=== PATIENT | female | born 1940 | race Caucasian/White ===

== ENCOUNTER 2024-06-10 17:52 | Inpatient (IN) | payer MEDICARE, SELFPAY ==
--- NOTE | ~2024-06-10 | XR_ITS ---
EXAMINATION: XR CHEST 1 VIEW HISTORY: SOB COMPARISON: There are no prior studies for comparison. FINDINGS: A single AP portable view of the chest performed at 2:36 PM is submitted. There is linear subsegmental atelectasis versus scarring at the left lung base and in the right midlung zone. The lungs are otherwise clear. There is no pleural effusion, pneumothorax, or pulmonary vascular congestion. The heart is normal in size. The aorta is calcified and tortuous. There is degenerative disc disease of the spine. XR/XR chest 1V IMPRESSION: Subsegmental atelectasis versus scarring at the left lung base and in the right midlung zone. Electronically signed by: Tom Bryant MD 06/26/2024 03:02 PM EDT
--- OUTSIDE RECORDS SUMMARY | 2024-06-10 18:27 | XMS_ITS | Clinical Summary ---
Author Organization [facility] ([facility] [id number]) Address [address] [facility] [address] [place] [phone] Phone Care Team Providers Care Medication Nurse Name Role Phone AL DUNLAP, BHUPINDER Unavailable Unavailable SHARA [id number], DENNIS Unavailable Unavailabl e Payers Payer Name Policy Type Policy Number Effective Date Expira tion Date NGS - PDGM [id number] Problems Condition Name Condition Details Condition Category Status Onset Date Resolution Date Last Treatment Date Treating Clinician Comments UNSP DEMENTIA, UNSP SEVERITY, WITHOUT BEH/PSYCH/MO OD/ANX Active 05-14 00:00: 00 ESSENTIAL (PRIMARY) HYPERTENSION Active 02-25 00:00: 00 SYSTEMIC LUPUS ERYTHEMATOSU S, UNSPECIFIED Active 02-25 00:00: 00 GASTRO-ESOPH AGEAL REFLUX DISEASE WITHOUT ESOPHAGITIS Active 02-25 00:00: 00 HYPOTHYROIDI SM, UNSPECIFIED Active 02-25 00:00: 00 PURE HYPERCHOLEST EROLEMIA, UNSPECIFIED Active 02-25 00:00: 00 METABOLIC ENCEPHALOPAT HY Active 02-25 00:00: 00 AORTIC ANEURYSM OF UNSPECIFIED SITE, WITHOUT RUPTURE Active 02-25 00:00: 00 UNSPECIFIED GLAUCOMA Active 02-25 00:00: 00 MORBID (SEVERE) OBESITY DUE TO EXCESS CALORIES Active 02-25 00:00: 00 BODY MASS INDEX [BMI] 32.0-32.9, ADULT Active 02-25 00:00: 00 SHELTER (CURRENT) USE OF SYSTEMIC STEROIDS Active 02-25 00:00: 00 HISTORY OF FALLING Active 02-25 00:00: 00 Allergies, Adverse Reactions, Alerts Allergy Name Allergy Type Status Severity Reaction(s) Onset Date Inactive Date Treating Clinician Comments AMOXCILLIN Propensity to adverse reactions Active 05-17 08:50: 29 CLINDAMYCIN Propensity to adverse reactions Active 05-17 08:50: 42 NABUMATONE Propensity to adverse reactions Inactive 05-17 08:50: 51 4 09:32:13 PENICILLIN Propensity to adverse reactions Active 05-17 08:51: 24 ERYTHOMYCIN Propensity to adverse reactions Active 05-17 08:51: 33 SULFA (SULFONAMID ES) Propensity to adverse reactions Active 05-17 08:51: 49 NABUMETONE Propensity to adverse reactions Active 05-29 09:32: 13 Medications Ordered Medication Name Filled Medication Name Start Date Stop Date Current Medication? Ordering Clinician Indication Dosage Frequency Signature (SIG) Comments Components estradiol 1 mg tablet 05-16 00:00: 00 Yes [id number] 0.5 tablet DAILY 0.5 tablet DAILY (route: oral) Med Classific ation: Endocrine hydroxychlo roquine 200 mg tablet 05-16 00:00: 00 Yes [id number] 1 tablet 2 TIMES DAILY 1 tablet 2 TIMES DAILY (route: oral) Med Classific ation: Anti-Infe ctive Agents levothyroxi ne 125 mcg tablet 05-16 00:00: 00 Yes [id number] 1 tablet EVERY AM 1 tablet EVERY AM (route: oral) Med Classific ation: Endocrine losartan 100 mg tablet 05-16 00:00: 00 Yes [id number] 1 tablet DAILY 1 tablet DAILY (route: oral) Med Classific ation: Cardiovas cular Therapy Agents metoprolol tartrate 25 mg tablet 05-16 00:00: 00 Yes [id number] 0.5 tablet 2 TIMES DAILY 0.5 tablet 2 TIMES DAILY (route: oral) Med Classific ation: Cardiovas cular Therapy Agents nystatin 100,000 unit/gram topical powder 05-16 00:00: 00 Yes [id number] Per instruc tions 2 TIMES DAILY Per instructio ns 2 TIMES DAILY (route: topical) Med Classific ation: Dermatolo gical omeprazole 10 mg capsule,del ayed release 05-16 00:00: 00 Yes [id number] 1 capsule EVERY AM 1 capsule EVERY AM (route: oral) Med Classific ation: Gastroint estinal Therapy Agents prednisone 5 mg tablet 05-16 00:00: 00 Yes [id number] 3 tablet DAILY 3 tablet DAILY (route: oral) Med Classific ation: Endocrine Vital Signs Vital Name Observation Time Observation Value Commen ts Temperature 2024-06-01 14:16:00.000 98 [degF] Temperature 2024-05-27 14:12:00.000 97.2 [degF] Temperature 2024-05-25 19:32:00.000 96.9 [degF] Temperature 2024-05-21 11:01:00.000 97.2 [degF] Temperature 2024-05-19 10:48:00.000 97.6 [degF] Temperature 2024-05-16 12:22:00.000 97.3 [degF] BMI (%) 2024-05-16 12:22:00.000 32 kg/m2 Height 2024-05-16 12:22:00.000 64 [in_us] Pulse 2024-06-01 14:16:00.000 70 /min Pulse 2024-05-27 16:25:00.000 78 /min Pulse 2024-05-27 14:12:00.000 81 /min Pulse 2024-05-26 13:09:00.000 76 /min Pulse 2024-05-25 19:32:00.000 68 /min Pulse 2024-05-22 18:55:00.000 72 /min Pulse 2024-05-21 11:01:00.000 66 /min Pulse 2024-05-19 10:48:00.000 58 /min Pulse 2024-05-16 13:00:00.000 69 /min Pulse 2024-05-16 12:22:00.000 60 /min O2 Saturation (%) 2024-06-01 14:16:00.000 97 % O2 Saturation (%) 2024-05-27 16:26:00.000 97 % O2 Saturation (%) 2024-05-27 14:12:00.000 98 % O2 Saturation (%) 2024-05-26 13:10:00.000 96 % O2 Saturation (%) 2024-05-25 19:32:00.000 98 % O2 Saturation (%) 2024-05-21 11:01:00.000 98 % O2 Saturation (%) 2024-05-19 10:48:00.000 98 % O2 Saturation (%) 2024-05-16 13:00:00.000 98 % O2 Saturation (%) 2024-05-16 12:22:00.000 98 % Respirations 2024-06-01 14:16:00.000 18 /min Respirations 2024-05-27 16:26:00.000 22 /min Respirations 2024-05-27 14:12:00.000 20 /min Respirations 2024-05-26 13:09:00.000 22 /min Respirations 2024-05-25 19:32:00.000 18 /min Respirations 2024-05-21 11:01:00.000 18 /min Respirations 2024-05-19 10:48:00.000 16 /min Respirations 2024-05-16 13:00:00.000 24 /min Respirations 2024-05-16 12:22:00.000 18 /min Weight (lbs) 2024-05-16 12:22:00.000 191 [lb_av] Systolic Blood Pressure 2024-06-01 14:16:00.000 130 mm [Hg] Systolic Blood Pressure 2024-05-27 16:25:00.000 120 mm [Hg] Systolic Blood Pressure 2024-05-27 14:12:00.000 120 mm [Hg] Systolic Blood Pressure 2024-05-26 13:10:00.000 138 mm [Hg] Systolic Blood Pressure 2024-05-25 19:32:00.000 130 mm [Hg] Systolic Blood Pressure 2024-05-21 11:01:00.000 128 mm [Hg] Systolic Blood Pressure 2024-05-19 10:48:00.000 132 mm [Hg] Systolic Blood Pressure 2024-05-16 13:00:00.000 149 mm [Hg] Systolic Blood Pressure 2024-05-16 12:22:00.000 135 mm [Hg] Diastolic Blood Pressure 2024-06-01 14:16:00.000 82 mm [Hg] Diastolic Blood Pressure 2024-05-27 16:25:00.000 68 mm [Hg] Diastolic Blood Pressure 2024-05-27 14:12:00.000 68 mm [Hg] Diastolic Blood Pressure 2024-05-26 13:10:00.000 72 mm [Hg] Diastolic Blood Pressure 2024-05-25 19:32:00.000 72 mm [Hg] Diastolic Blood Pressure 2024-05-21 11:01:00.000 76 mm [Hg] Diastolic Blood Pressure 2024-05-19 10:48:00.000 70 mm [Hg] Diastolic Blood Pressure 2024-05-16 13:00:00.000 90 mm [Hg] Diastolic Blood Pressure 2024-05-16 12:22:00.000 80 mm [Hg] Plan of Care Planned Activity Planned Date Details Comments Future Scheduled Test PHYSICAL T HERAPIST WILL ASSESS AND INSTRUCT ON ANY CHANGES IN CO-EXISTING AND/OR RECURRING CONDITIONS SUCH DEMENTIA, TACHYCARDIA FACTORS THAT IMPACT ACTIVITY AND PARTICIPATION, DEVELOP PHYSICAL THERAPY PLAN OF CARE IN CONSULTATION WITH THE PHYSICIAN THAT INCLUDES INFECTION PREVENTION/CONTROL, DEPRESSION, HEALTH PROMOTION, HOME SAFETY, NUTRITIONAL NEEDS, IDENTIFICATION OF NEW OR CHANGED MEDICATIONS AND HOME INSTRUCTIONS TO FACILITATE TIMELY DISCHARGE. MAY RESUME CARE IF PATIENT IS TRANSFERRED TO AN INPATIENT FACILITY AND SUBSEQUENTLY DISCHARGED DURING THE EPISODE OF CARE. MAY D/C FROM AGENCY/SKILLED DISCIPLINE FOR GOALS MET, NO FURTHER SKILLS, NO LONGER HOMEBOUND, PER CT/PCG/MD REQUEST, UNSAFE HOME ENVIRONMENT, MOVED OUT OF SERVICE AREA OR DISCHARGED TO HOSPICE SERVICE. [code = PHYSICAL THERAPIST WILL ASSESS AND INSTRUCT ON ANY CHANGES IN CO-EXISTING AND/OR RECURRING CONDITIONS SUCH DEMENTIA, TACHYCARDIA FACTORS THAT IMPACT ACTIVITY AND PARTICIPATION, DEVELOP PHYSICAL THERAPY PLAN OF CARE IN CONSULTATION WITH THE PHYSICIAN THAT INCLUDES INFECTION PREVENTION/CONTROL, DEPRESSION, HEALTH PROMOTION, HOME SAFETY, NUTRITIONAL NEEDS, IDENTIFICATION OF NEW OR CHANGED MEDICATIONS AND HOME INSTRUCTIONS TO FACILITATE TIMELY DISCHARGE. MAY RESUME CARE IF PATIENT IS TRANSFERRED TO AN INPATIENT FACILITY AND SUBSEQUENTLY DISCHARGED DURING THE EPISODE OF CARE. MAY D/C FROM AGENCY/SKILLED DISCIPLINE FOR GOALS MET, NO FURTHER SKILLS, NO LONGER HOMEBOUND, PER CT/PCG/MD REQUEST, UNSAFE HOME ENVIRONMENT, MOVED OUT OF SERVICE AREA OR DISCHARGED TO HOSPICE SERVICE.] Future Scheduled Test I CERTIFY THAT THIS PATIENT IS CONFINED TO HIS/HER HOME AND NEEDS INTERMITTENT USP CARE, PHYSICAL THERAPY AND/OR SPEECH THERAPY OR CONTINUES TO NEED OCCUPATIONAL THERAPY. THE PATIENT IS UNDER MY CARE AND I HAVE AUTHORIZED SERVICES ON THIS PLAN OF CARE AND WILL PERIODICALLY REVIEW THE PLAN. THE PATIENT HAD A [id number] ENCOUNTER RELATED TO THE PRIMARY REASON FOR HOME HEALTH CARE WITH AN ALLOWED PROVIDER TYPE ON 04/30/24. [code = I CERTIFY THAT THIS PATIENT IS CONFINED TO HIS/HER HOME AND NEEDS INTERMITTENT USP CARE, PHYSICAL THERAPY AND/OR SPEECH THERAPY OR CONTINUES TO NEED OCCUPATIONAL THERAPY. THE PATIENT IS UNDER MY CARE AND I HAVE AUTHORIZED SERVICES ON THIS PLAN OF CARE AND WILL PERIODICALLY REVIEW THE PLAN. THE PATIENT HAD A [id number] ENCOUNTER RELATED TO THE PRIMARY REASON FOR HOME HEALTH CARE WITH AN ALLOWED PROVIDER TYPE ON 04/30/24.] Future Scheduled Test PHYSICAL T HERAPIST WILL ASSESS AND INSTRUCT ON PAIN MANAGEMENT EACH VISIT AND PROVIDE INSTRUCTION REGARDING PAIN CONTROL INCLUDING PHARMACOLOGIC AND NON-PHARMACOLOGIC METHODS [code = PHYSICAL THERAPIST WILL ASSESS AND INSTRUCT ON PAIN MANAGEMENT EACH VISIT AND PROVIDE INSTRUCTION REGARDING PAIN CONTROL INCLUDING PHARMACOLOGIC AND NON-PHARMACOLOGIC METHODS ] Future Scheduled Test PHYSICAL T HERAPIST WILL ASSESS AND INSTRUCT CLIENT/CAREGIVER IN GENERAL MODIFIABLE RISKS AND SAFETY ROUTINES FOR FALLS PREVENTION. [code = PHYSICAL THERAPIST WILL ASSESS AND INSTRUCT CLIENT/CAREGIVER IN GENERAL MODIFIABLE RISKS AND SAFETY ROUTINES FOR FALLS PREVENTION. ] Future Scheduled Test PHYSICAL T HERAPIST TO ASSESS AND INSTRUCT ON INTERVENTIONS FOR IMPROVED FUNCTIONAL MOBILITY WITH TRANSFERS, BED MOBILITY, AMBULATION THERAPEUTIC/BALANCE EXERCISES AND HOME PROGRAM NEEDED. [code = PHYSICAL THERAPIST TO ASSESS AND INSTRUCT ON INTERVENTIONS FOR IMPROVED FUNCTIONAL MOBILITY WITH TRANSFERS, BED MOBILITY, AMBULATION THERAPEUTIC/BALANCE EXERCISES AND HOME PROGRAM NEEDED.] Future Scheduled Test PHYSICAL T HERAPIST WILL ASSESS AND INSTRUCT CLIENT/CAREGIVER ON MANAGEMENT OF SKIN INTEGRITY AND PREVENTION OF PRESSURE ULCERS WITH/WITHOUT MOIST SKIN BARRIER, POSITIONING, INSPECTION, AND OFFLOADING TECHNIQUES. THERAPIST WILL ASSESS THE NEED FOR SUPPORT SURFACES (CUSHION, MATTRESS, ETC). [code = PHYSICAL THERAPIST WILL ASSESS AND INSTRUCT CLIENT/CAREGIVER ON MANAGEMENT OF SKIN INTEGRITY AND PREVENTION OF PRESSURE ULCERS WITH/WITHOUT MOIST SKIN BARRIER, POSITIONING, INSPECTION, AND OFFLOADING TECHNIQUES. THERAPIST WILL ASSESS THE NEED FOR SUPPORT SURFACES (CUSHION, MATTRESS, ETC).] Encounters Start Date/Time End Date/Time Encounter Type Admission Type Attending [facility] Care Department Encounter ID [id number] 00:00:00 2024-07-14 00:00:00 Unknown NEW ADMISSION DENNIS [facility]MEDO [facility] [id number]
[2024-06-10 18:52] VITALS: BMI 29.7
[2024-06-10 18:54] VITALS: BP 153/83; PULSE 60; RESP 18; TEMP 36.1; O2SAT 97
--- NOTE | 2024-06-10 19:09 | PC.NURSE ---
Emily arrived at 1820. 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 She was found to have increased troponin and was admitted for possible pneumonia. Once cleared medically she made several suicidal statements and became an IPLOC search. Pleasant when arrived changed over and skin only remarkable for bruising. No redness or open areas. Appetite is good and she is currently in the dining room eating a snack. Ambulating with a slow and steady gait. Admission will be passed to oncoming shift.
[2024-06-10] MEDS: QUEtiapine Fumarate 25 MG TABLET PO (21:39)
[2024-06-10] MEDS: predniSONE 5 MG TABLET 10 MG PO (22:16)
[2024-06-11] MEDS: Levothyroxine Sodium 125 MCG TABLET PO (05:57)
[2024-06-11 08:24] LABS: Estimated Average Glucose 97 mg/dL; Hemoglobin A1C 121.9742 umol/L; Total Hemoglobin (HGBA1C) 3945.9163 umol/L
[2024-06-11 08:35] LABS: Cholesterol 176 mg/dL (<200); HDL Cholesterol 64 mg/dL (>40); LDL Cholesterol Calculated 98 mg/dL (<100); Triglycerides 70 mg/dL (<150)
[2024-06-11 08:49] LABS: TSH reflex Free T4 1.41 uIU/mL (0.32-4.0)
[2024-06-11 09:00] VITALS: BP 127/67; PULSE 78; RESP 18; TEMP 36.7; O2SAT 96
[2024-06-11] MEDS: Acetaminophen 325 MG TABLET 650 MG PO (09:02)
[2024-06-11 09:03] LABS: Alanine Aminotransferase 26 U/L (0-31); Albumin Level 3.9 g/dL (3.5-5.0); Alkaline Phosphatase 76 U/L (39-117); Anion Gap 14 (12-20); Aspartate Amino Transferase 24 U/L (5-31); Bilirubin Total 0.4 mg/dL (0.0-1.0); Blood Urea Nitrogen 24 mg/dL (9-16); Calcium 9.6 mg/dL (8.4-10.2); Carbon Dioxide 26 mmol/L (22-29); Chloride 106 mmol/L (96-108); Creatinine Clr Calc Pharmacy 48.1; Estimated Glomerular Filt Rate 58; Glucose Random 98 mg/dL (60-115); Potassium 4.9 mmol/L (3.3-5.1); Sodium 141 mmol/L (135-145)
[2024-06-11] MEDS: Losartan Potassium 50 MG TABLET 100 MG PO (09:04)
[2024-06-11] MEDS: predniSONE 5 MG TABLET PO (09:05)
[2024-06-11] MEDS: Omeprazole/Na Bicarb Oral Susp 20 MG/10 ML UD Cup 10 MG PO (09:06)
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
--- NOTE | 2024-06-11 09:28 | P.HPPS_ITS ---
[facility] Date of Service: 06/11/24 Chief Complaint: Psychosis Sources of Information: patient interviewed, chart reviewed and crisis/core team assessment reviewed Additional Sources of Information: daughter, Lupe who is POA. [phone] [facility] Subjective Notes: Yousif Warning and Section 12B Healthcare Proxy: Yes Narrative: Mrs. Rosa is an 84 year-old woman with hx of dementia who recently transition to [facility] in 03/2024 due to concerns about her ability to care for herself due to dementia. She was sent via EMS from [facility] to [facility] due to combative behaviors, dizziness, refusal of care and HI towards daughter. In the ED, pertinent labs include CMP with no electrolyte abnormalities, BUN 17, Cr 1.03, creatinine clearance 54. LFTs wnl. UA not suggestive of UTI. She did have elevated TSH initially 27.994 on 06/01/2024, but went down to 12 on (06/06/2024). Troponins were also elevated initially 165 on 06/02/2024, then down to 29 on 06/06. She was seen by cardiology ruling out ischemia but considered elevation was due to increase demand. Head CT showed atrophy and microvascular changes but no acute finding. On the unit, pt presents as irritable. She reports her daughter has been making decisions on her behalf that she does not agree with including moving her out of her home in [facility] to a memory unit. She does not agree with diagnosis or dementia nor with idea that she was not able to care for herself. She denies SI or HI. She reports HI statements where in the context of frustration as again she feels her daughter is crossing her the line by taking over her medical care and financial decisions. She reports she has the right to refuse care and does admit that she was not taking medications as prescribed at times. She was noted to be easily irritable when talking about her daughter and not being able to return to her own home and live she had in [place]. Past Psychiatric History: Inpt: none prior OP: none Past medication trials: olanzapine, seroquel Hx of suicide attempts: none Medical Evaluation Reviewed: Yes [facility] Medical History (Updated 06/12/24 @ 08:19 by Dulce Lewis NP) GERD (gastroesophageal reflux disease) Dementia Hypothyroidism HTN (hypertension) Lupus (systemic lupus erythematosus) Family History: none Social History: Pt since 1982. She had 3 children. youngest daughter in MVA at the age of 21. Her son in 2017. She has only one living daughter. 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 Substance History: none Trauma History: multiple losses Diagnostics Vital Signs (24Hr): Vital Signs - 24 hr 06/10/24 18:54 06/11/24 09:00 Temperature 96.9 F 98.1 F Pulse Rate 60 78 Respiratory Rate 18 18 Blood Pressure 153/83 H 127/67 Pulse Oximetry 97 96 Oxygen Delivery Method Room Air Room Air BMI result Body Mass Index 29.7 Labs 06/11/24 07:26 Labs: Laboratory Results - last 48 hr 06/11/24 07:26 Sodium 141 Potassium 4.9 Chloride 106 Carbon Dioxide 26 Anion Gap 14 BUN 24 H Creatinine 0.93 Estim Creat Clear Calc 48.1 Estimated GFR 58 Random Glucose 98 Estimat Average Glucose 97 Hemoglobin A1c % 5.0 Calcium 9.6 Total Bilirubin 0.4 AST 24 ALT 26 Alkaline Phosphatase 76 Total Protein 7.0 Albumin 3.9 Triglycerides 70 Cholesterol 176 LDL Cholesterol, Calc 98 HDL Cholesterol 64 TSH 1.41 Meds/Allergies Meds Home Medications ?Medication ?Instructions ?Recorded ?Confirmed ?Type estradiol 1 mg tablet 1 mg PO DAILY 06/10/24 06/10/24 History hydroxychloroquine 200 mg tablet 200 mg PO BID 06/10/24 06/10/24 History levothyroxine 125 mcg tablet 125 mcg PO DAILY 06/10/24 06/10/24 History losartan 100 mg tablet 100 mg PO DAILY 06/10/24 06/10/24 History metoprolol tartrate 25 mg tablet 25 mg PO DAILY 06/10/24 06/10/24 History omeprazole 10 mg capsule,delayed 10 mg PO DAILY 06/10/24 06/10/24 History release prednisone 10 mg tablet 10 mg PO BEDTIME 06/10/24 06/10/24 History prednisone 5 mg tablet 5 mg PO QAM 06/10/24 06/10/24 History quetiapine 25 mg tablet 25 mg PO BEDTIME 06/10/24 06/10/24 History Allergies Allergies Allergy/AdvReac Type Severity Reaction Status Date / Time amoxicillin AdvReac Rash Verified 06/10/24 19:16 clindamycin AdvReac Rash Verified 06/10/24 19:14 erythromycin base AdvReac Rash Verified 06/10/24 19:15 nabumetone AdvReac Rash Verified 06/10/24 19:17 Penicillins AdvReac Rash Verified 06/10/24 19:16 Sulfa (Sulfonamide AdvReac Rash Verified 06/10/24 19:18 Antibiotics) [Sulfonamides] Mental Status Exam Mental Status Exam Narrative: Appearance: wearing hospital gown, fair hygiene, in NAD Behavior: irritable or guarded Psychomotor: mild intermittent agitation Speech: clear, normal rate/rhythm, spontaneous, low volume voice hx of vocal cord injury TP: linear TC: upset with daugther, hoping she can be independent again Mood: upset Affect: irritable SI: denies HI: denies VH/AH: none Delusions: none Insight/judgment: poor x 2. memory/cog: alert, oriented x 3. some confusion about why she is here. MOCA completed on 06/12/2024, impairments in executive function/visuospatial (2/5), naming 2/3, language fluency (0/1), intact orientation. ACL 4.6 Assessment & Plan Assessment & Plan (1) Major neurocognitive disorder: Status: Acute Code(s): F03.90 - Unspecified dementia, unspecified severity, without behavioral disturbance, psychotic disturbance, mood disturbance, and anxiety Plan Mrs. Rosa is a 84 year-old woman with hx of dementia who recently moved to [facility] in 03/2024. Pt was sent via EMS from the [facility] to [facility] due to combative behaviors, refusing care and HI towards daughter. Medical work remarkable for elevated TSH initially 27 to 12. Elevated troponin but seen by cardiology who felt not ischemia, but increased demand. On the unit, pt presents as irritable and upset with daughter, mostly because of placement to [facility] and not being at home. No overt psychosis or delusions noted. No SI/HI. She declines any medications for mood. Other than irritability, no combative behaviors. MOCA and ACL 4.6 show moderate cognitive decline. PLAN 1. Admit to S1, Sect 12b, 15 minutes checks 2. obtain collateral information 3. aftercare planning. Patient educated on: diagnosis and medication risk/benefits Guardian/Caregiver educated on: diagnosis and medication risk/benefits Informed Consent: understands Reason for continued inpatient stay Substantial Risk for: inability to function Statement Statement: I have reviewed the history and physical and performed a pertinent examination on my patient. No changes have occurred unless specified. If the History and Physical was not performed prior to admission, the Hospitalist's service will be consulted for completing the admission physical. Time Spent With Patient Time: Total time managing care of this patient today ____ minutes.
[2024-06-11] MEDS: Hydroxychloroquine Sulfate 200 MG TABLET PO ×2 (11:22→22:04)
[2024-06-11] MEDS: estradioL 0.5 MG TABLET 1 MG PO (11:22)
[2024-06-11 20:00] VITALS: BP 122/90; PULSE 79; RESP 18; TEMP 36.1; O2SAT 95
[2024-06-11] MEDS: predniSONE 5 MG TABLET 10 MG PO (22:05)
[2024-06-11] MEDS: QUEtiapine Fumarate 25 MG TABLET PO (22:08)
[2024-06-12] MEDS: Levothyroxine Sodium 125 MCG TABLET PO (06:05)
[2024-06-12 08:37] VITALS: BP 142/72; PULSE 62; RESP 20; TEMP 36.8; O2SAT 96
[2024-06-12] MEDS: Losartan Potassium 50 MG TABLET 100 MG PO (08:41)
[2024-06-12] MEDS: predniSONE 5 MG TABLET PO (08:41)
[2024-06-12] MEDS: Hydroxychloroquine Sulfate 200 MG TABLET PO ×2 (08:41→20:37)
[2024-06-12] MEDS: Omeprazole/Na Bicarb Oral Susp 20 MG/10 ML UD Cup 10 MG PO (08:45)
--- NOTE | 2024-06-12 17:21 | P.PNPSI_ITS ---
Subjective Subjective Date of Service: 06/12/24 Reason For Visit: Psychosis Subjective Notes: Section 12B Interim History: Pt slept through the night. She is very upset with daughter for having her move to [facility]. She is easily irritable and at times will apologize for being reactive towards staff and provider on the unit, recognizing this was not hospital doing. She does not present with any signs of psychosis or delusions. No SI/HI. Review of Systems Review of Systems No SOB, no chest pain. No constipation She reports back pain Mental Status Exam Mental Status Exam Narrative: Appearance: wearing hospital gown, fair hygiene, in NAD Behavior: irritable or guarded Psychomotor: mild intermittent agitation Speech: clear, normal rate/rhythm, spontaneous, low volume voice hx of vocal cord injury TP: linear TC: upset with daugther, hoping she can be independent again Mood: upset Affect: irritable SI: denies HI: denies VH/AH: none Delusions: none Insight/judgment: poor x 2. memory/cog: alert, oriented x 3. some confusion about why she is here. MOCA completed on 06/12/2024, impairments in executive function/visuospatial (2/5), naming 2/3, language fluency (0/1), intact orientation. ACL 4.6 Diagnostics Vital Signs (24Hr): Vital Signs - 24 hr 06/11/24 20:00 06/12/24 08:37 Temperature 97 F 98.3 F Pulse Rate 79 62 Respiratory Rate 18 20 Blood Pressure 122/90 H 142/72 H Pulse Oximetry 95 96 Oxygen Delivery Method Room Air Room Air BMI result Body Mass Index 29.7 Labs 06/11/24 07:26 Labs: Laboratory Results - last 48 hr 06/11/24 07:26 Sodium 141 Potassium 4.9 Chloride 106 Carbon Dioxide 26 Anion Gap 14 BUN 24 H Creatinine 0.93 Estim Creat Clear Calc 48.1 Estimated GFR 58 Random Glucose 98 Estimat Average Glucose 97 Hemoglobin A1c % 5.0 Calcium 9.6 Total Bilirubin 0.4 AST 24 ALT 26 Alkaline Phosphatase 76 Total Protein 7.0 Albumin 3.9 Triglycerides 70 Cholesterol 176 LDL Cholesterol, Calc 98 HDL Cholesterol 64 TSH 1.41 Medications Medications Current Medications Acetaminophen (Acetaminophen 325 Mg Tablet) 650 mg PO Q6H PRN PRN Reason: Headache/Pain, Scale 1-10 Last Admin: 06/11/24 09:02 Dose: 650 mg Al Hydroxide/Mg Hydroxide (Magnesium Hydrox/Alum Hydrox 30 Ml Oral.Susp) 30 ml PO Q6H PRN PRN Reason: Heartburn/Nausea Estradiol (Estradiol 0.5 Mg Tablet) 1 mg PO DAILY [facility] Last Admin: 06/12/24 08:44 Dose: Not Given Hydroxychloroquine Sulfate (Hydroxychloroquine Sulfate 200 Mg Tablet) 200 mg PO BID [facility] Last Admin: 06/12/24 08:41 Dose: 200 mg Levothyroxine Sodium (Levothyroxine Sodium 125 Mcg Tablet) 125 mcg PO DAILY@0630 [facility] Last Admin: 06/12/24 06:05 Dose: 125 mcg Losartan Potassium (Losartan Potassium 50 Mg Tablet) 100 mg PO DAILY [facility]; Protocol Last Admin: 06/12/24 08:41 Dose: 100 mg Magnesium Hydroxide (Milk Of Magnesia 30 Ml Oral.Susp) 30 ml PO DAILY PRN PRN Reason: Constipation Metoprolol Tartrate (Metoprolol Tartrate 25 Mg Tablet) 25 mg PO DAILY [facility]; Protocol Nicotine Polacrilex (Nicotine Polacrilex 2 Mg Gum) 4 mg BUCCAL Q2H PRN PRN Reason: Nicotine Cravings Olanzapine (Olanzapine 2.5 Mg Tablet) 2.5 mg PO TID PRN PRN Reason: agitation Omeprazole (Omeprazole/Na Bicarb Oral Susp 20 Mg/10 Ml Ud Cup) 10 mg PO DAILY [facility] Last Admin: 06/12/24 08:45 Dose: 10 mg Prednisone (Prednisone 5 Mg Tablet) 10 mg PO BEDTIME [facility] Last Admin: 06/11/24 22:05 Dose: 10 mg Prednisone (Prednisone 5 Mg Tablet) 5 mg PO DAILY [facility] Last Admin: 06/12/24 08:41 Dose: 5 mg Quetiapine Fumarate (Quetiapine Fumarate 25 Mg Tablet) 25 mg PO BEDTIME [facility] Last Admin: 06/11/24 22:08 Dose: 25 mg Trazodone HCl (Trazodone Hcl 25 Mg Halftab) 25 mg PO BEDTIME MRX1 PRN PRN Reason: Insomnia Allergies Allergies Allergy/AdvReac Type Severity Reaction Status Date / Time amoxicillin AdvReac Rash Verified 06/10/24 19:16 clindamycin AdvReac Rash Verified 06/10/24 19:14 erythromycin base AdvReac Rash Verified 06/10/24 19:15 nabumetone AdvReac Rash Verified 06/10/24 19:17 Penicillins AdvReac Rash Verified 06/10/24 19:16 Sulfa (Sulfonamide AdvReac Rash Verified 06/10/24 19:18 Antibiotics) [Sulfonamides] Assessment & Plan Assessment & Plan (1) Major neurocognitive disorder: Status: Acute Code(s): F03.90 - Unspecified dementia, unspecified severity, without behavioral disturbance, psychotic disturbance, mood disturbance, and anxiety Plan Mrs. Rosa is a 84 year-old woman with hx of dementia who recently moved to [facility] in 03/2024. Pt was sent via EMS from the [facility] to [facility] due to combative behaviors, refusing care and HI towards daughter. Medical work remarkable for elevated TSH initially 27 to 12. Elevated troponin but seen by cardiology who felt not ischemia, but increased demand. On the unit, pt presents as irritable and upset with daughter, mostly because of placement to [facility] and not being at home. No overt psychosis or delusions noted. No SI/HI. She declines any medications for mood. Other than irritability, no combative behaviors. MOCA 17/30 and ACL 4.6 show moderate cognitive decline. PLAN 06/12 continue tx. Reason for continued inpatient stay Substantial Risk for: inability to function Time Spent With Patient Time: Total time managing care of this patient today ____ minutes.
[2024-06-12 20:00] VITALS: BP 141/73; PULSE 82; RESP 18; TEMP 36.2; O2SAT 96
[2024-06-12] MEDS: predniSONE 5 MG TABLET 10 MG PO (20:37)
[2024-06-12] MEDS: QUEtiapine Fumarate 25 MG TABLET PO (20:37)
[2024-06-13] MEDS: Levothyroxine Sodium 125 MCG TABLET PO (05:44)
[2024-06-13 08:47] VITALS: BP 124/68; PULSE 92; RESP 18; TEMP 36.6; O2SAT 95
[2024-06-13] MEDS: Losartan Potassium 50 MG TABLET 100 MG PO (08:49)
[2024-06-13] MEDS: estradioL 0.5 MG TABLET 1 MG PO (08:49)
[2024-06-13] MEDS: Hydroxychloroquine Sulfate 200 MG TABLET PO ×2 (08:49→19:55)
[2024-06-13] MEDS: Omeprazole/Na Bicarb Oral Susp 20 MG/10 ML UD Cup 10 MG PO (08:52)
[2024-06-13] MEDS: predniSONE 5 MG TABLET PO (08:53)
--- NOTE | 2024-06-13 18:23 | P.PNPSI_ITS ---
Subjective Subjective Date of Service: 06/13/24 Reason For Visit: Psychosis Subjective Notes: Section 12B Interim History: Pt slept through the night. She is very upset with daughter for having her move to [facility]. She is easily irritable and at times will apologize for being reactive towards staff and provider on the unit, recognizing this was not hospital doing. She does not present with any signs of psychosis or delusions. No SI/HI. will not sign voluntarily but also, no acute psychiatric symptoms to treat. No behavioral concerns. Review of Systems Review of Systems No SOB, no chest pain. No constipation She reports back pain Mental Status Exam Mental Status Exam Narrative: Appearance: wearing hospital gown, fair hygiene, in NAD Behavior: irritable or guarded Psychomotor: mild intermittent agitation Speech: clear, normal rate/rhythm, spontaneous, low volume voice hx of vocal cord injury TP: linear TC: upset with daugther, hoping she can be independent again Mood: upset Affect: irritable SI: denies HI: denies VH/AH: none Delusions: none Insight/judgment: poor x 2. memory/cog: alert, oriented x 3. some confusion about why she is here. MOCA completed on 06/12/2024, impairments in executive function/visuospatial (2/5), naming 2/3, language fluency (0/1), intact orientation. ACL 4.6 Diagnostics Vital Signs (24Hr): Vital Signs - 24 hr 06/12/24 20:00 06/13/24 08:47 Temperature 97.1 F 97.9 F Pulse Rate 82 92 Respiratory Rate 18 18 Blood Pressure 141/73 H 124/68 Pulse Oximetry 96 95 Oxygen Delivery Method Room Air Room Air BMI result Body Mass Index 29.7 Labs 06/11/24 07:26 Medications Medications Current Medications Acetaminophen (Acetaminophen 325 Mg Tablet) 650 mg PO Q6H PRN PRN Reason: Headache/Pain, Scale 1-10 Last Admin: 06/11/24 09:02 Dose: 650 mg Al Hydroxide/Mg Hydroxide (Magnesium Hydrox/Alum Hydrox 30 Ml Oral.Susp) 30 ml PO Q6H PRN PRN Reason: Heartburn/Nausea Estradiol (Estradiol 0.5 Mg Tablet) 1 mg PO DAILY [facility] Last Admin: 06/13/24 08:49 Dose: 1 mg Hydroxychloroquine Sulfate (Hydroxychloroquine Sulfate 200 Mg Tablet) 200 mg PO BID [facility] Last Admin: 06/13/24 08:49 Dose: 200 mg Levothyroxine Sodium (Levothyroxine Sodium 125 Mcg Tablet) 125 mcg PO DAILY@0630 [facility] Last Admin: 06/13/24 05:44 Dose: 125 mcg Losartan Potassium (Losartan Potassium 50 Mg Tablet) 100 mg PO DAILY [facility]; Protocol Last Admin: 06/13/24 08:49 Dose: 100 mg Magnesium Hydroxide (Milk Of Magnesia 30 Ml Oral.Susp) 30 ml PO DAILY PRN PRN Reason: Constipation Metoprolol Tartrate (Metoprolol Tartrate 25 Mg Tablet) 25 mg PO DAILY [facility]; Protocol Nicotine Polacrilex (Nicotine Polacrilex 2 Mg Gum) 4 mg BUCCAL Q2H PRN PRN Reason: Nicotine Cravings Olanzapine (Olanzapine 2.5 Mg Tablet) 2.5 mg PO TID PRN PRN Reason: agitation Omeprazole (Omeprazole 20 Mg Capsule.Dr) 20 mg PO DAILY@0630 [facility] Prednisone (Prednisone 5 Mg Tablet) 10 mg PO BEDTIME [facility] Last Admin: 06/12/24 20:37 Dose: 10 mg Prednisone (Prednisone 5 Mg Tablet) 5 mg PO DAILY [facility] Last Admin: 06/13/24 08:53 Dose: 5 mg Quetiapine Fumarate (Quetiapine Fumarate 25 Mg Tablet) 25 mg PO BEDTIME [facility] Last Admin: 06/12/24 20:37 Dose: 25 mg Trazodone HCl (Trazodone Hcl 25 Mg Halftab) 25 mg PO BEDTIME MRX1 PRN PRN Reason: Insomnia Allergies Allergies Allergy/AdvReac Type Severity Reaction Status Date / Time amoxicillin AdvReac Rash Verified 06/10/24 19:16 clindamycin AdvReac Rash Verified 06/10/24 19:14 erythromycin base AdvReac Rash Verified 06/10/24 19:15 nabumetone AdvReac Rash Verified 06/10/24 19:17 Penicillins AdvReac Rash Verified 06/10/24 19:16 Sulfa (Sulfonamide AdvReac Rash Verified 06/10/24 19:18 Antibiotics) [Sulfonamides] Assessment & Plan Assessment & Plan (1) Major neurocognitive disorder: Status: Acute Code(s): F03.90 - Unspecified dementia, unspecified severity, without behavioral disturbance, psychotic disturbance, mood disturbance, and anxiety Plan Mrs. Rosa is a 84 year-old woman with hx of dementia who recently moved to [facility] in 03/2024. Pt was sent via EMS from the [facility] to [facility] due to combative behaviors, refusing care and HI towards daughter. Medical work remarkable for elevated TSH initially 27 to 12. Elevated troponin but seen by cardiology who felt not ischemia, but increased demand. On the unit, pt presents as irritable and upset with daughter, mostly because of placement to [facility] and not being at home. No overt psychosis or delusions noted. No SI/HI. She declines any medications for mood. Other than irritability, no combative behaviors. MOCA 17 and ACL 4.6 show moderate cognitive decline. PLAN 06/13 planning dc at end of sect 12b on 06/16 Reason for continued inpatient stay Substantial Risk for: inability to function Time Spent With Patient Time: Total time managing care of this patient today ____ minutes.
[2024-06-13 19:47] VITALS: BP 131/61; PULSE 92; RESP 16; TEMP 36.1; O2SAT 96
[2024-06-13] MEDS: predniSONE 5 MG TABLET 10 MG PO (19:55)
[2024-06-13] MEDS: QUEtiapine Fumarate 25 MG TABLET PO (19:55)
[2024-06-14] MEDS: Levothyroxine Sodium 125 MCG TABLET PO (05:38)
[2024-06-14] MEDS: Omeprazole 20 MG CAPSULE.DR PO (05:38)
[2024-06-14 08:25] VITALS: BP 144/74; PULSE 90; RESP 16; TEMP 36.8; O2SAT 95
[2024-06-14] MEDS: estradioL 0.5 MG TABLET 1 MG PO (08:29)
[2024-06-14] MEDS: predniSONE 5 MG TABLET PO (08:29)
[2024-06-14] MEDS: Hydroxychloroquine Sulfate 200 MG TABLET PO ×2 (08:29→20:07)
[2024-06-14] MEDS: Losartan Potassium 50 MG TABLET 100 MG PO (08:29)
[2024-06-14 19:50] VITALS: BP 133/72; PULSE 83; RESP 18; TEMP 36.6; O2SAT 96
[2024-06-14] MEDS: QUEtiapine Fumarate 25 MG TABLET PO (20:07)
[2024-06-14] MEDS: predniSONE 5 MG TABLET 10 MG PO (20:07)
--- NOTE | 2024-06-14 22:23 | HO.PSYCHPN ---
Subjective Subjective Date of Service: 06/14/24 Reason For Visit: Psychosis Interim History: Pt slept through the night. She is very upset with daughter for having her move to [facility]. She is easily irritable and at times will apologize for being reactive towards staff and provider on the unit, recognizing this was not hospital doing. She does not present with any signs of psychosis or delusions. No SI/HI. will not sign voluntarily but also, no acute psychiatric symptoms to treat. No behavioral concerns. Review of Systems Review of Systems No SOB, no chest pain. No constipation She reports back pain Mental Status Exam Mental Status Exam Narrative: Appearance: wearing hospital gown, fair hygiene, in NAD Behavior: irritable or guarded Psychomotor: mild intermittent agitation Speech: clear, normal rate/rhythm, spontaneous, low volume voice hx of vocal cord injury TP: linear TC: upset with daugther, hoping she can be independent again Mood: upset Affect: irritable SI: denies HI: denies VH/AH: none Delusions: none Insight/judgment: poor x 2. memory/cog: alert, oriented x 3. some confusion about why she is here. MOCA completed on 06/12/2024, impairments in executive function/visuospatial (2/5), naming 2/3, language fluency (0/1), intact orientation. ACL 4.6 Diagnostics Vital Signs (24Hr): Vital Signs - 24 hr 06/14/24 08:25 06/14/24 19:50 Temperature 98.2 F 97.9 F Pulse Rate 90 83 Respiratory Rate 16 18 Blood Pressure 144/74 H 133/72 Pulse Oximetry 95 96 Oxygen Delivery Method Room Air Room Air BMI result Body Mass Index 29.7 Labs 06/11/24 07:26 Medications Medications Current Medications Acetaminophen (Acetaminophen 325 Mg Tablet) 650 mg PO Q6H PRN PRN Reason: Headache/Pain, Scale 1-10 Last Admin: 06/11/24 09:02 Dose: 650 mg Al Hydroxide/Mg Hydroxide (Magnesium Hydrox/Alum Hydrox 30 Ml Oral.Susp) 30 ml PO Q6H PRN PRN Reason: Heartburn/Nausea Estradiol (Estradiol 0.5 Mg Tablet) 1 mg PO DAILY [facility] Last Admin: 06/14/24 08:29 Dose: 1 mg Hydroxychloroquine Sulfate (Hydroxychloroquine Sulfate 200 Mg Tablet) 200 mg PO BID [facility] Last Admin: 06/14/24 20:07 Dose: 200 mg Levothyroxine Sodium (Levothyroxine Sodium 125 Mcg Tablet) 125 mcg PO DAILY@0630 [facility] Last Admin: 06/14/24 05:38 Dose: 125 mcg Losartan Potassium (Losartan Potassium 50 Mg Tablet) 100 mg PO DAILY [facility]; Protocol Last Admin: 06/14/24 08:29 Dose: 100 mg Magnesium Hydroxide (Milk Of Magnesia 30 Ml Oral.Susp) 30 ml PO DAILY PRN PRN Reason: Constipation Metoprolol Tartrate (Metoprolol Tartrate 25 Mg Tablet) 25 mg PO DAILY [facility]; Protocol Nicotine Polacrilex (Nicotine Polacrilex 2 Mg Gum) 4 mg BUCCAL Q2H PRN PRN Reason: Nicotine Cravings Olanzapine (Olanzapine 2.5 Mg Tablet) 2.5 mg PO TID PRN PRN Reason: agitation Omeprazole (Omeprazole 20 Mg Capsule.Dr) 20 mg PO DAILY@0630 [facility] Last Admin: 06/14/24 05:38 Dose: 20 mg Prednisone (Prednisone 5 Mg Tablet) 10 mg PO BEDTIME [facility] Last Admin: 06/14/24 20:07 Dose: 10 mg Prednisone (Prednisone 5 Mg Tablet) 5 mg PO DAILY [facility] Last Admin: 06/14/24 08:29 Dose: 5 mg Quetiapine Fumarate (Quetiapine Fumarate 25 Mg Tablet) 25 mg PO BEDTIME [facility] Last Admin: 06/14/24 20:07 Dose: 25 mg Trazodone HCl (Trazodone Hcl 25 Mg Halftab) 25 mg PO BEDTIME MRX1 PRN PRN Reason: Insomnia Allergies Allergies Allergy/AdvReac Type Severity Reaction Status Date / Time amoxicillin AdvReac Rash Verified 06/10/24 19:16 clindamycin AdvReac Rash Verified 06/10/24 19:14 erythromycin base AdvReac Rash Verified 06/10/24 19:15 nabumetone AdvReac Rash Verified 06/10/24 19:17 Penicillins AdvReac Rash Verified 06/10/24 19:16 Sulfa (Sulfonamide AdvReac Rash Verified 06/10/24 19:18 Antibiotics) [Sulfonamides] Assessment & Plan Assessment & Plan (1) Major neurocognitive disorder: Status: Acute Code(s): F03.90 - Unspecified dementia, unspecified severity, without behavioral disturbance, psychotic disturbance, mood disturbance, and anxiety Plan Mrs. Rosa is a 84 year-old woman with hx of dementia who recently moved to [facility] in 03/2024. Pt was sent via EMS from the [facility] to [facility] due to combative behaviors, refusing care and HI towards daughter. Medical work remarkable for elevated TSH initially 27 to 12. Elevated troponin but seen by cardiology who felt not ischemia, but increased demand. On the unit, pt presents as irritable and upset with daughter, mostly because of placement to [facility] and not being at home. No overt psychosis or delusions noted. No SI/HI. She declines any medications for mood. Other than irritability, no combative behaviors. MOCA 17 and ACL 4.6 show moderate cognitive decline. PLAN 06/14 continue tx. irritable. Reason for continued inpatient stay Substantial Risk for: inability to function Time Spent With Patient Time: Total time managing care of this patient today ____ minutes.
[2024-06-15] MEDS: Levothyroxine Sodium 125 MCG TABLET PO (05:53)
[2024-06-15] MEDS: Omeprazole 20 MG CAPSULE.DR PO (05:53)
[2024-06-15 08:26] VITALS: BP 147/66; PULSE 81; RESP 16; TEMP 36.4; O2SAT 95
[2024-06-15] MEDS: estradioL 0.5 MG TABLET 1 MG PO (08:27)
[2024-06-15] MEDS: Hydroxychloroquine Sulfate 200 MG TABLET PO ×2 (08:29→20:13)
[2024-06-15] MEDS: predniSONE 5 MG TABLET PO (08:29)
[2024-06-15] MEDS: Losartan Potassium 50 MG TABLET 100 MG PO (08:29)
--- NOTE | 2024-06-15 19:44 | P.PNPSI_ITS ---
Subjective Subjective Date of Service: 06/15/24 Reason For Visit: Psychosis Interim History: Pt slept through the night. She is very upset with daughter for having her move to [facility]. She is easily irritable and at times will apologize for being reactive towards staff and provider on the unit, recognizing this was not hospital doing. She does not present with any signs of psychosis or delusions. No SI/HI. will not sign voluntarily but also, no acute psychiatric symptoms to treat. No behavioral concerns. Review of Systems Review of Systems No SOB, no chest pain. No constipation She reports back pain Mental Status Exam Mental Status Exam Narrative: Appearance: wearing hospital gown, fair hygiene, in NAD Behavior: irritable or guarded Psychomotor: mild intermittent agitation Speech: clear, normal rate/rhythm, spontaneous, low volume voice hx of vocal cord injury TP: linear TC: upset with daugther, hoping she can be independent again Mood: upset Affect: irritable SI: denies HI: denies VH/AH: none Delusions: none Insight/judgment: poor x 2. memory/cog: alert, oriented x 3. some confusion about why she is here. MOCA completed on 06/12/2024, impairments in executive function/visuospatial (2/5), naming 2/3, language fluency (0/1), intact orientation. ACL 4.6 Diagnostics Vital Signs (24Hr): Vital Signs - 24 hr 06/14/24 19:50 06/15/24 08:26 Temperature 97.9 F 97.5 F Pulse Rate 83 81 Respiratory Rate 18 16 Blood Pressure 133/72 147/66 H Pulse Oximetry 96 95 Oxygen Delivery Method Room Air Room Air BMI result Body Mass Index 29.7 Labs 06/11/24 07:26 Medications Medications Current Medications Acetaminophen (Acetaminophen 325 Mg Tablet) 650 mg PO Q6H PRN PRN Reason: Headache/Pain, Scale 1-10 Last Admin: 06/11/24 09:02 Dose: 650 mg Al Hydroxide/Mg Hydroxide (Magnesium Hydrox/Alum Hydrox 30 Ml Oral.Susp) 30 ml PO Q6H PRN PRN Reason: Heartburn/Nausea Donepezil HCl (Donepezil Hcl 5 Mg Tablet) 5 mg PO BEDTIME [facility] Estradiol (Estradiol 0.5 Mg Tablet) 1 mg PO DAILY [facility] Last Admin: 06/15/24 08:27 Dose: 1 mg Hydroxychloroquine Sulfate (Hydroxychloroquine Sulfate 200 Mg Tablet) 200 mg PO BID [facility] Last Admin: 06/15/24 08:29 Dose: 200 mg Levothyroxine Sodium (Levothyroxine Sodium 125 Mcg Tablet) 125 mcg PO DAILY@0630 [facility] Last Admin: 06/15/24 05:53 Dose: 125 mcg Losartan Potassium (Losartan Potassium 50 Mg Tablet) 100 mg PO DAILY [facility]; Protocol Last Admin: 06/15/24 08:29 Dose: 100 mg Magnesium Hydroxide (Milk Of Magnesia 30 Ml Oral.Susp) 30 ml PO DAILY PRN PRN Reason: Constipation Metoprolol Tartrate (Metoprolol Tartrate 25 Mg Tablet) 25 mg PO DAILY [facility]; Protocol Nicotine Polacrilex (Nicotine Polacrilex 2 Mg Gum) 4 mg BUCCAL Q2H PRN PRN Reason: Nicotine Cravings Olanzapine (Olanzapine 5 Mg Tablet) 5 mg PO BEDTIME [facility] Omeprazole (Omeprazole 20 Mg Capsule.Dr) 20 mg PO DAILY@0630 [facility] Last Admin: 06/15/24 05:53 Dose: 20 mg Prednisone (Prednisone 5 Mg Tablet) 10 mg PO BEDTIME [facility] Last Admin: 06/14/24 20:07 Dose: 10 mg Prednisone (Prednisone 5 Mg Tablet) 5 mg PO DAILY [facility] Last Admin: 06/15/24 08:29 Dose: 5 mg Quetiapine Fumarate (Quetiapine Fumarate 50 Mg Tablet) 50 mg PO TID PRN PRN Reason: severe anxiety/agitation Trazodone HCl (Trazodone Hcl 25 Mg Halftab) 25 mg PO BEDTIME MRX1 PRN PRN Reason: Insomnia Allergies Allergies Allergy/AdvReac Type Severity Reaction Status Date / Time amoxicillin AdvReac Rash Verified 06/10/24 19:16 clindamycin AdvReac Rash Verified 06/10/24 19:14 erythromycin base AdvReac Rash Verified 06/10/24 19:15 nabumetone AdvReac Rash Verified 06/10/24 19:17 Penicillins AdvReac Rash Verified 06/10/24 19:16 Sulfa (Sulfonamide AdvReac Rash Verified 06/10/24 19:18 Antibiotics) [Sulfonamides] Assessment & Plan Assessment & Plan (1) Major neurocognitive disorder: Status: Acute Code(s): F03.90 - Unspecified dementia, unspecified severity, without behavioral disturbance, psychotic disturbance, mood disturbance, and anxiety Plan Mrs. Moe is a 84 year-old woman with hx of dementia who recently moved to [facility] in 03/2024. Pt was sent via EMS from the [facility] to [facility] due to combative behaviors, refusing care and HI towards daughter. Medical work remarkable for elevated TSH initially 27 to 12. Elevated troponin but seen by cardiology who felt not ischemia, but increased demand. On the unit, pt presents as irritable and upset with daughter, mostly because of placement to [facility] and not being at home. No overt psychosis or delusions noted. No SI/HI. She declines any medications for mood. Other than irritability, no combative behaviors. MOCA and ACL 4.6 show moderate cognitive decline. PLAN 06/13 planning dc at end of sect 12b on 06/16 06/14 continue tx. irritable, no combative behaviors 06/15 spoke with daughter who is HCP. HCP reports pt more irritable in last few weeks, initially when moved to the [facility] she seemed to be adjusting well, but in past two weeks seemed very irritable, blaming daughter, seemed more suspicious towards staff at the [facility]. decided to do further medication adjustments, switch to olanzapine 5mg po qhs and add aricept 5mg po qhs. Reason for continued inpatient stay Substantial Risk for: inability to function Time Spent With Patient Time: Total time managing care of this patient today ____ minutes.
[2024-06-15 20:00] VITALS: BP 139/66; PULSE 84; RESP 16; TEMP 36.2; O2SAT 96
[2024-06-15] MEDS: OLANZapine 5 MG TABLET PO (20:13)
[2024-06-15] MEDS: Donepezil HCl 5 MG TABLET PO (20:13)
[2024-06-15] MEDS: predniSONE 5 MG TABLET 10 MG PO (20:13)
[2024-06-16] MEDS: Levothyroxine Sodium 125 MCG TABLET PO (05:42)
[2024-06-16] MEDS: Omeprazole 20 MG CAPSULE.DR PO (05:42)
[2024-06-16 08:10] VITALS: BP 152/72; PULSE 98; RESP 20; TEMP 35.7; O2SAT 96
[2024-06-16] MEDS: estradioL 0.5 MG TABLET 1 MG PO (08:11)
[2024-06-16] MEDS: Hydroxychloroquine Sulfate 200 MG TABLET PO ×2 (08:12→20:55)
[2024-06-16] MEDS: predniSONE 5 MG TABLET PO (08:13)
[2024-06-16] MEDS: Losartan Potassium 50 MG TABLET 100 MG PO (08:13)
--- NOTE | 2024-06-16 11:28 | HO.PSYCHPN ---
Subjective Subjective Date of Service: 06/16/24 Reason For Visit: Psychosis Subjective Notes: Conditional Voluntary Healthcare Proxy: Yes Interim History: Pt slept through the night. Pt reports she thinks her sister is behind her being here in the hospital. She does not think she has any memory or cognitive impairments. She reports she is waiting to be discharged soon. She denies SI/HI. Some suspiciousness. Review of Systems Review of Systems No SOB, no chest pain. No constipation She reports back pain Mental Status Exam Mental Status Exam Narrative: Appearance: wearing hospital gown, fair hygiene, in NAD Behavior: irritable or guarded Psychomotor: mild intermittent agitation Speech: clear, normal rate/rhythm, spontaneous, low volume voice hx of vocal cord injury TP: linear TC: upset with daugther, hoping she can be independent again Mood: upset Affect: irritable SI: denies HI: denies VH/AH: none Delusions: none Insight/judgment: poor x 2. memory/cog: alert, oriented x 3. some confusion about why she is here. MOCA completed on 06/12/2024, impairments in executive function/visuospatial (2/5), naming 2/3, language fluency (0/1), intact orientation. ACL 4.6 Diagnostics Vital Signs (24Hr): Vital Signs - 24 hr 06/15/24 20:00 06/16/24 08:10 Temperature 97.1 F 96.2 F L Pulse Rate 84 98 Respiratory Rate 16 20 Blood Pressure 139/66 152/72 H Pulse Oximetry 96 96 Oxygen Delivery Method Room Air Room Air BMI result Body Mass Index 29.7 Labs 06/11/24 07:26 Medications Medications Current Medications Acetaminophen (Acetaminophen 325 Mg Tablet) 650 mg PO Q6H PRN PRN Reason: Headache/Pain, Scale 1-10 Last Admin: 06/11/24 09:02 Dose: 650 mg Al Hydroxide/Mg Hydroxide (Magnesium Hydrox/Alum Hydrox 30 Ml Oral.Susp) 30 ml PO Q6H PRN PRN Reason: Heartburn/Nausea Donepezil HCl (Donepezil Hcl 5 Mg Tablet) 5 mg PO BEDTIME COUNTS INCLUDE 234 BEDS AT THE [facility] Last Admin: 06/15/24 20:13 Dose: 5 mg Estradiol (Estradiol 0.5 Mg Tablet) 1 mg PO DAILY COUNTS INCLUDE 234 BEDS AT THE [facility] Last Admin: 06/16/24 08:11 Dose: 1 mg Hydroxychloroquine Sulfate (Hydroxychloroquine Sulfate 200 Mg Tablet) 200 mg PO BID COUNTS INCLUDE 234 BEDS AT THE [facility] Last Admin: 06/16/24 08:12 Dose: 200 mg Levothyroxine Sodium (Levothyroxine Sodium 125 Mcg Tablet) 125 mcg PO DAILY@0630 COUNTS INCLUDE 234 BEDS AT THE [facility] Last Admin: 06/16/24 05:42 Dose: 125 mcg Losartan Potassium (Losartan Potassium 50 Mg Tablet) 100 mg PO DAILY COUNTS INCLUDE 234 BEDS AT THE [facility]; Protocol Last Admin: 06/16/24 08:13 Dose: 100 mg Magnesium Hydroxide (Milk Of Magnesia 30 Ml Oral.Susp) 30 ml PO DAILY PRN PRN Reason: Constipation Metoprolol Tartrate (Metoprolol Tartrate 25 Mg Tablet) 25 mg PO DAILY [facility]S INCLUDE 234 BEDS AT THE [facility]; Protocol Nicotine Polacrilex (Nicotine Polacrilex 2 Mg Gum) 4 mg BUCCAL Q2H PRN PRN Reason: Nicotine Cravings Olanzapine (Olanzapine 5 Mg Tablet) 5 mg PO BEDTIME COUNTS INCLUDE 234 BEDS AT THE [facility] Last Admin: 06/15/24 20:13 Dose: 5 mg Omeprazole (Omeprazole 20 Mg Capsule.Dr) 20 mg PO DAILY@629 COUNTS INCLUDE 234 BEDS AT THE [facility] Last Admin: 06/16/24 05:42 Dose: 20 mg Prednisone (Prednisone 5 Mg Tablet) 10 mg PO BEDTIME COUNTS INCLUDE 234 BEDS AT THE [facility] Last Admin: 06/15/24 20:13 Dose: 10 mg Prednisone (Prednisone 5 Mg Tablet) 5 mg PO DAILY COUNTS INCLUDE 234 BEDS AT THE [facility] Last Admin: 06/16/24 08:13 Dose: 5 mg Quetiapine Fumarate (Quetiapine Fumarate 50 Mg Tablet) 50 mg PO TID PRN PRN Reason: severe anxiety/agitation Trazodone HCl (Trazodone Hcl 25 Mg Halftab) 25 mg PO BEDTIME MRX1 PRN PRN Reason: Insomnia Allergies Allergies Allergy/AdvReac Type Severity Reaction Status Date / Time amoxicillin AdvReac Rash Verified 06/10/24 19:16 clindamycin AdvReac Rash Verified 06/10/24 19:14 erythromycin base AdvReac Rash Verified 06/10/24 19:15 nabumetone AdvReac Rash Verified 06/10/24 19:17 Penicillins AdvReac Rash Verified 06/10/24 19:16 Sulfa (Sulfonamide AdvReac Rash Verified 06/10/24 19:18 Antibiotics) [Sulfonamides] Assessment & Plan Assessment & Plan (1) Major neurocognitive disorder: Status: Acute Code(s): F03.90 - Unspecified dementia, unspecified severity, without behavioral disturbance, psychotic disturbance, mood disturbance, and anxiety Plan Mrs. Rosa is a 84 year-old woman with hx of dementia who recently moved to The [facility] in 03/2024. Pt was sent via EMS from the [facility] to [facility] due to combative behaviors, refusing care and HI towards daughter. Medical work remarkable for elevated TSH initially 27 to 12. Elevated troponin but seen by cardiology who felt not ischemia, but increased demand. On the unit, pt presents as irritable and upset with daughter, mostly because of placement to [facility] and not being at home. No overt psychosis or delusions noted. No SI/HI. She declines any medications for mood. Other than irritability, no combative behaviors. MOCA and ACL 4.6 show moderate cognitive decline. PLAN 06/13 planning dc at end of sect 12b on 06/16 06/14 continue tx. irritable, no combative behaviors 06/15 spoke with daughter who is HCP. HCP reports pt more irritable in last few weeks, initially when moved to the [facility] she seemed to be adjusting well, but in past two weeks seemed very irritable, blaming daughter, seemed more suspicious towards staff at the [facility]. decided to do further medication adjustments, switch to olanzapine 5mg po qhs and add aricept 5mg po qhs. 06/16 continue tx. Reason for continued inpatient stay Substantial Risk for: inability to function Time Spent With Patient Time: Total time managing care of this patient today ____ minutes.
[2024-06-16 20:00] VITALS: BP 142/67; PULSE 90; RESP 18; TEMP 35.9; O2SAT 96
[2024-06-16] MEDS: predniSONE 5 MG TABLET 10 MG PO (20:56)
[2024-06-16] MEDS: Donepezil HCl 5 MG TABLET PO (20:56)
[2024-06-16] MEDS: OLANZapine 5 MG TABLET PO (20:56)
[2024-06-17] MEDS: Omeprazole 20 MG CAPSULE.DR PO (06:11)
[2024-06-17] MEDS: Levothyroxine Sodium 125 MCG TABLET PO (06:11)
[2024-06-17 08:00] VITALS: BP 179/79; PULSE 83; RESP 16; TEMP 35.5; O2SAT 95
[2024-06-17 08:20] VITALS: BP 179/79
[2024-06-17] MEDS: Losartan Potassium 50 MG TABLET 100 MG PO (08:20)
[2024-06-17] MEDS: estradioL 0.5 MG TABLET 1 MG PO (08:20)
[2024-06-17] MEDS: Hydroxychloroquine Sulfate 200 MG TABLET PO ×2 (08:21→20:10)
[2024-06-17] MEDS: predniSONE 5 MG TABLET PO (08:21)
[2024-06-17] MEDS: Acetaminophen 325 MG TABLET 650 MG PO (13:51)
[2024-06-17 20:00] VITALS: BP 137/77; PULSE 88; RESP 18; TEMP 36.1; O2SAT 95
[2024-06-17] MEDS: Donepezil HCl 5 MG TABLET PO (20:10)
[2024-06-17] MEDS: OLANZapine 5 MG TABLET PO (20:10)
[2024-06-17] MEDS: predniSONE 5 MG TABLET 10 MG PO (20:10)
--- NOTE | 2024-06-17 21:06 | HO.PSYCHPN ---
Subjective Subjective Date of Service: 06/17/24 Reason For Visit: Psychosis Subjective Notes: Conditional Voluntary Interim History: Pt slept through the night. Pt reports she is trying to do best given circumstances. She is pleasant on approach. Although quick to become irritable when discussing reasons for being here. She is noted to be very forgetful from day to day. Not able to retain conversations we have. Review of Systems Review of Systems No SOB, no chest pain. No constipation She reports back pain Mental Status Exam Mental Status Exam Narrative: Appearance: wearing hospital gown, fair hygiene, in NAD Behavior: irritable or guarded Psychomotor: mild intermittent agitation Speech: clear, normal rate/rhythm, spontaneous, low volume voice hx of vocal cord injury TP: linear TC: upset with daugther, hoping she can be independent again Mood: upset Affect: irritable SI: denies HI: denies VH/AH: none Delusions: none Insight/judgment: poor x 2. memory/cog: alert, oriented x 3. some confusion about why she is here. MOCA completed on 06/12/2024, impairments in executive function/visuospatial (2/5), naming 2/3, language fluency (0/1), intact orientation. ACL 4.6 Diagnostics Vital Signs (24Hr): Vital Signs - 24 hr 06/17/24 08:00 06/17/24 08:20 06/17/24 20:00 Temperature 96 F L 96.9 F Pulse Rate 83 88 Respiratory Rate 16 18 Blood Pressure 179/79 H 179/79 H 137/77 Pulse Oximetry 95 95 Oxygen Delivery Method Room Air Room Air BMI result Body Mass Index 29.7 Labs 06/11/24 07:26 Medications Medications Current Medications Acetaminophen (Acetaminophen 325 Mg Tablet) 650 mg PO Q6H PRN PRN Reason: Headache/Pain, Scale 1-10 Last Admin: 06/17/24 13:51 Dose: 650 mg Al Hydroxide/Mg Hydroxide (Magnesium Hydrox/Alum Hydrox 30 Ml Oral.Susp) 30 ml PO Q6H PRN PRN Reason: Heartburn/Nausea Donepezil HCl (Donepezil Hcl 5 Mg Tablet) 5 mg PO BEDTIME [facility] Last Admin: 06/17/24 20:10 Dose: 5 mg Estradiol (Estradiol 0.5 Mg Tablet) 1 mg PO DAILY [facility] Last Admin: 06/17/24 08:20 Dose: 1 mg Hydroxychloroquine Sulfate (Hydroxychloroquine Sulfate 200 Mg Tablet) 200 mg PO BID [facility] Last Admin: 06/17/24 20:10 Dose: 200 mg Levothyroxine Sodium (Levothyroxine Sodium 125 Mcg Tablet) 125 mcg PO DAILY@06 [facility] Last Admin: 06/17/24 06:11 Dose: 125 mcg Losartan Potassium (Losartan Potassium 50 Mg Tablet) 100 mg PO DAILY [facility]; Protocol Last Admin: 06/17/24 08:20 Dose: 100 mg Magnesium Hydroxide (Milk Of Magnesia 30 Ml Oral.Susp) 30 ml PO DAILY PRN PRN Reason: Constipation Metoprolol Tartrate (Metoprolol Tartrate 25 Mg Tablet) 25 mg PO DAILY [facility]; Protocol Nicotine Polacrilex (Nicotine Polacrilex 2 Mg Gum) 4 mg BUCCAL Q2H PRN PRN Reason: Nicotine Cravings Olanzapine (Olanzapine 5 Mg Tablet) 5 mg PO BEDTIME [facility] Last Admin: 06/17/24 20:10 Dose: 5 mg Omeprazole (Omeprazole 20 Mg Capsule.Dr) 20 mg PO DAILY@629 [facility] Last Admin: 06/17/24 06:11 Dose: 20 mg Prednisone (Prednisone 5 Mg Tablet) 10 mg PO BEDTIME [facility] Last Admin: 06/17/24 20:10 Dose: 10 mg Prednisone (Prednisone 5 Mg Tablet) 5 mg PO DAILY [facility] Last Admin: 06/17/24 08:21 Dose: 5 mg Quetiapine Fumarate (Quetiapine Fumarate 50 Mg Tablet) 50 mg PO TID PRN PRN Reason: severe anxiety/agitation Trazodone HCl (Trazodone Hcl 25 Mg Halftab) 25 mg PO BEDTIME MRX1 PRN PRN Reason: Insomnia Allergies Allergies Allergy/AdvReac Type Severity Reaction Status Date / Time amoxicillin AdvReac Rash Verified 06/10/24 19:16 clindamycin AdvReac Rash Verified 06/10/24 19:14 erythromycin base AdvReac Rash Verified 06/10/24 19:15 nabumetone AdvReac Rash Verified 06/10/24 19:17 Penicillins AdvReac Rash Verified 06/10/24 19:16 Sulfa (Sulfonamide AdvReac Rash Verified 06/10/24 19:18 Antibiotics) [Sulfonamides] Assessment & Plan Assessment & Plan (1) Major neurocognitive disorder: Status: Acute Code(s): F03.90 - Unspecified dementia, unspecified severity, without behavioral disturbance, psychotic disturbance, mood disturbance, and anxiety Plan Mrs. Rosa is a 84 year-old woman with hx of dementia who recently moved to The [facility] in 03/2024. Pt was sent via EMS from the [facility] to [facility] due to combative behaviors, refusing care and HI towards daughter. Medical work remarkable for elevated TSH initially 27 to 12. Elevated troponin but seen by cardiology who felt not ischemia, but increased demand. On the unit, pt presents as irritable and upset with daughter, mostly because of placement to [facility] and not being at home. No overt psychosis or delusions noted. No SI/HI. She declines any medications for mood. Other than irritability, no combative behaviors. MOCA and ACL 4.6 show moderate cognitive decline. PLAN 06/13 planning dc at end of sect 12b on 06/16 06/14 continue tx. irritable, no combative behaviors 06/15 spoke with daughter who is HCP. HCP reports pt more irritable in last few weeks, initially when moved to the [facility] she seemed to be adjusting well, but in past two weeks seemed very irritable, blaming daughter, seemed more suspicious towards staff at the [facility]. decided to do further medication adjustments, switch to olanzapine 5mg po qhs and add aricept 5mg po qhs. 06/16 continue tx. 06/17 continue tx. Reason for continued inpatient stay Substantial Risk for: inability to function Time Spent With Patient Time: Total time managing care of this patient today ____ minutes.
[2024-06-18] MEDS: Omeprazole 20 MG CAPSULE.DR PO (05:37)
[2024-06-18] MEDS: Levothyroxine Sodium 125 MCG TABLET PO (05:37)
[2024-06-18 07:00] VITALS: BMI 31.6
[2024-06-18 07:58] VITALS: BP 137/61; PULSE 71; RESP 20; TEMP 36.7; O2SAT 97
--- NOTE | 2024-06-18 08:27 | P.PNPSI_ITS ---
Subjective Subjective Date of Service: 06/18/24 Reason For Visit: Psychosis Subjective Notes: Conditional Voluntary Healthcare Proxy: Yes Interim History: Pt slept through the night. She was up this morning, having breakfast, stating she was doing well. Pt reports she is trying to do best given circumstances. She is pleasant on approach. Although quick to become irritable when discussing reasons for being here. She is noted to be very forgetful from day to day. Not able to retain conversations we have. Review of Systems Review of Systems No SOB, no chest pain. No constipation She reports back pain Mental Status Exam Mental Status Exam Narrative: Appearance: wearing hospital gown, fair hygiene, in NAD Behavior: irritable or guarded Psychomotor: mild intermittent agitation Speech: clear, normal rate/rhythm, spontaneous, low volume voice hx of vocal cord injury TP: linear TC: upset with daugther, hoping she can be independent again Mood: upset Affect: irritable SI: denies HI: denies VH/AH: none Delusions: none Insight/judgment: poor x 2. memory/cog: alert, oriented x 3. some confusion about why she is here. MOCA completed on 06/12/2024, impairments in executive function/visuospatial (2/5), naming 2/3, language fluency (0/1), intact orientation. ACL 4.6 Diagnostics Vital Signs (24Hr): Vital Signs - 24 hr 06/17/24 20:00 06/18/24 07:58 Temperature 96.9 F 98.1 F Pulse Rate 88 71 Respiratory Rate 18 20 Blood Pressure 137/77 137/61 Pulse Oximetry 95 97 Oxygen Delivery Method Room Air Room Air BMI result Body Mass Index 29.7 Labs 06/11/24 07:26 Medications Medications Current Medications Acetaminophen (Acetaminophen 325 Mg Tablet) 650 mg PO Q6H PRN PRN Reason: Headache/Pain, Scale 1-10 Last Admin: 06/17/24 13:51 Dose: 650 mg Al Hydroxide/Mg Hydroxide (Magnesium Hydrox/Alum Hydrox 30 Ml Oral.Susp) 30 ml PO Q6H PRN PRN Reason: Heartburn/Nausea Donepezil HCl (Donepezil Hcl 5 Mg Tablet) 5 mg PO BEDTIME [facility] Last Admin: 06/17/24 20:10 Dose: 5 mg Estradiol (Estradiol 0.5 Mg Tablet) 1 mg PO DAILY [facility] Last Admin: 06/17/24 08:20 Dose: 1 mg Hydroxychloroquine Sulfate (Hydroxychloroquine Sulfate 200 Mg Tablet) 200 mg PO BID [facility] Last Admin: 06/17/24 20:10 Dose: 200 mg Levothyroxine Sodium (Levothyroxine Sodium 125 Mcg Tablet) 125 mcg PO DAILY@0630 [facility] Last Admin: 06/18/24 05:37 Dose: 125 mcg Losartan Potassium (Losartan Potassium 50 Mg Tablet) 100 mg PO DAILY [facility]; Protocol Last Admin: 06/17/24 08:20 Dose: 100 mg Magnesium Hydroxide (Milk Of Magnesia 30 Ml Oral.Susp) 30 ml PO DAILY PRN PRN Reason: Constipation Metoprolol Tartrate (Metoprolol Tartrate 25 Mg Tablet) 25 mg PO DAILY [facility]; Protocol Nicotine Polacrilex (Nicotine Polacrilex 2 Mg Gum) 4 mg BUCCAL Q2H PRN PRN Reason: Nicotine Cravings Olanzapine (Olanzapine 5 Mg Tablet) 5 mg PO BEDTIME [facility] Last Admin: 06/17/24 20:10 Dose: 5 mg Omeprazole (Omeprazole 20 Mg Capsule.Dr) 20 mg PO DAILY@629 [facility] Last Admin: 06/18/24 05:37 Dose: 20 mg Prednisone (Prednisone 5 Mg Tablet) 10 mg PO BEDTIME [facility] Last Admin: 06/17/24 20:10 Dose: 10 mg Prednisone (Prednisone 5 Mg Tablet) 5 mg PO DAILY [facility] Last Admin: 06/17/24 08:21 Dose: 5 mg Quetiapine Fumarate (Quetiapine Fumarate 50 Mg Tablet) 50 mg PO TID PRN PRN Reason: severe anxiety/agitation Trazodone HCl (Trazodone Hcl 25 Mg Halftab) 25 mg PO BEDTIME MRX1 PRN PRN Reason: Insomnia Allergies Allergies Allergy/AdvReac Type Severity Reaction Status Date / Time amoxicillin AdvReac Rash Verified 06/10/24 19:16 clindamycin AdvReac Rash Verified 06/10/24 19:14 erythromycin base AdvReac Rash Verified 06/10/24 19:15 nabumetone AdvReac Rash Verified 06/10/24 19:17 Penicillins AdvReac Rash Verified 06/10/24 19:16 Sulfa (Sulfonamide AdvReac Rash Verified 06/10/24 19:18 Antibiotics) [Sulfonamides] Assessment & Plan Assessment & Plan (1) Major neurocognitive disorder: Status: Acute Code(s): F03.90 - Unspecified dementia, unspecified severity, without behavioral disturbance, psychotic disturbance, mood disturbance, and anxiety Plan Mrs. Rosa is a 84 year-old woman with hx of dementia who recently moved to [facility] in 03/2024. Pt was sent via EMS from the [facility] to [facility] due to combative behaviors, refusing care and HI towards daughter. Medical work remarkable for elevated TSH initially 27 to 12. Elevated troponin but seen by cardiology who felt not ischemia, but increased demand. On the unit, pt presents as irritable and upset with daughter, mostly because of placement to [facility] and not being at home. No overt psychosis or delusions noted. No SI/HI. She declines any medications for mood. Other than irritability, no combative behaviors. MOCA and ACL 4.6 show moderate cognitive decline. PLAN 06/13 planning dc at end of sect 12b on 06/16 06/14 continue tx. irritable, no combative behaviors 06/15 spoke with daughter who is HCP. HCP reports pt more irritable in last few weeks, initially when moved to the [facility] she seemed to be adjusting well, but in past two weeks seemed very irritable, blaming daughter, seemed more suspicious towards staff at the [facility]. decided to do further medication adjustments, switch to olanzapine 5mg po qhs and add aricept 5mg po qhs. 06/16 continue tx. 06/17 continue tx. 06/18 continue tx. Reason for continued inpatient stay Substantial Risk for: inability to function Time Spent With Patient Time: Total time managing care of this patient today ____ minutes.
[2024-06-18] MEDS: estradioL 0.5 MG TABLET 1 MG PO (08:57)
[2024-06-18] MEDS: Losartan Potassium 50 MG TABLET 100 MG PO (08:57)
[2024-06-18] MEDS: Hydroxychloroquine Sulfate 200 MG TABLET PO ×2 (08:57→20:18)
[2024-06-18] MEDS: predniSONE 5 MG TABLET PO (08:57)
[2024-06-18 20:00] VITALS: BP 125/78; PULSE 88; RESP 15; TEMP 36.2; O2SAT 97
[2024-06-18] MEDS: predniSONE 5 MG TABLET 10 MG PO (20:19)
[2024-06-18] MEDS: OLANZapine 5 MG TABLET PO (20:19)
[2024-06-19] MEDS: Omeprazole 20 MG CAPSULE.DR PO (06:07)
[2024-06-19] MEDS: Levothyroxine Sodium 125 MCG TABLET PO (06:07)
[2024-06-19 08:35] VITALS: BP 123/72; PULSE 95; RESP 20; TEMP 36.6; O2SAT 96
[2024-06-19] MEDS: Hydroxychloroquine Sulfate 200 MG TABLET PO ×2 (08:54→20:57)
[2024-06-19] MEDS: predniSONE 5 MG TABLET PO (08:54)
[2024-06-19] MEDS: Losartan Potassium 50 MG TABLET 100 MG PO (08:54)
[2024-06-19] MEDS: estradioL 0.5 MG TABLET 1 MG PO (08:54)
--- NOTE | 2024-06-19 09:50 | HO.PSYCHPN ---
Subjective Subjective Date of Service: 06/19/24 Reason For Visit: Psychosis Subjective Notes: Conditional Voluntary Healthcare Proxy: Yes Interim History: Pt slept through the night. She was up this morning. She had an episode of fecal incontinence, not loose stool but well formed. She reported she did not make it to the bathroom. She is mostly in her room. No behavioral concerns. Medication Compliance: Yes Review of Systems Review of Systems No SOB, no chest pain. No constipation She reports back pain Mental Status Exam Mental Status Exam Narrative: Appearance: wearing hospital gown, fair hygiene, in NAD Behavior: irritable or guarded Psychomotor: mild intermittent agitation Speech: clear, normal rate/rhythm, spontaneous, low volume voice hx of vocal cord injury TP: linear TC: upset with daugther, hoping she can be independent again Mood: upset Affect: irritable SI: denies HI: denies VH/AH: none Delusions: none Insight/judgment: poor x 2. memory/cog: alert, oriented x 3. some confusion about why she is here. MOCA completed on 06/12/2024, impairments in executive function/visuospatial (2/5), naming 2/3, language fluency (0/1), intact orientation. ACL 4.6 Diagnostics Vital Signs (24Hr): Vital Signs - 24 hr 06/18/24 20:00 06/19/24 08:35 Temperature 97.2 F 97.9 F Pulse Rate 88 95 Respiratory Rate 15 20 Blood Pressure 125/78 123/72 Pulse Oximetry 97 96 Oxygen Delivery Method Room Air Room Air BMI result Body Mass Index 31.6 Labs 06/11/24 07:26 Medications Medications Current Medications Acetaminophen (Acetaminophen 325 Mg Tablet) 650 mg PO Q6H PRN PRN Reason: Headache/Pain, Scale 1-10 Last Admin: 06/17/24 13:51 Dose: 650 mg Al Hydroxide/Mg Hydroxide (Magnesium Hydrox/Alum Hydrox 30 Ml Oral.Susp) 30 ml PO Q6H PRN PRN Reason: Heartburn/Nausea Donepezil HCl (Donepezil Hcl 5 Mg Tablet) 5 mg PO BEDTIME [facility] Last Admin: 06/18/24 20:21 Dose: Not Given Estradiol (Estradiol 0.5 Mg Tablet) 1 mg PO DAILY [facility] Last Admin: 06/19/24 08:54 Dose: 1 mg Hydroxychloroquine Sulfate (Hydroxychloroquine Sulfate 200 Mg Tablet) 200 mg PO BID [facility] Last Admin: 06/19/24 08:54 Dose: 200 mg Levothyroxine Sodium (Levothyroxine Sodium 125 Mcg Tablet) 125 mcg PO DAILY@0630 [facility] Last Admin: 06/19/24 06:07 Dose: 125 mcg Losartan Potassium (Losartan Potassium 50 Mg Tablet) 100 mg PO DAILY [facility]; Protocol Last Admin: 06/19/24 08:54 Dose: 100 mg Magnesium Hydroxide (Milk Of Magnesia 30 Ml Oral.Susp) 30 ml PO DAILY PRN PRN Reason: Constipation Metoprolol Tartrate (Metoprolol Tartrate 25 Mg Tablet) 25 mg PO DAILY [facility]; Protocol Nicotine Polacrilex (Nicotine Polacrilex 2 Mg Gum) 4 mg BUCCAL Q2H PRN PRN Reason: Nicotine Cravings Olanzapine (Olanzapine 5 Mg Tablet) 5 mg PO BEDTIME [facility] Last Admin: 06/18/24 20:19 Dose: 5 mg Omeprazole (Omeprazole 20 Mg Capsule.Dr) 20 mg PO DAILY@30 [facility] Last Admin: 06/19/24 06:07 Dose: 20 mg Prednisone (Prednisone 5 Mg Tablet) 10 mg PO BEDTIME [facility] Last Admin: 06/18/24 20:19 Dose: 10 mg Prednisone (Prednisone 5 Mg Tablet) 5 mg PO DAILY [facility] Last Admin: 06/19/24 08:54 Dose: 5 mg Quetiapine Fumarate (Quetiapine Fumarate 50 Mg Tablet) 50 mg PO TID PRN PRN Reason: severe anxiety/agitation Trazodone HCl (Trazodone Hcl 25 Mg Halftab) 25 mg PO BEDTIME MRX1 PRN PRN Reason: Insomnia Allergies Allergies Allergy/AdvReac Type Severity Reaction Status Date / Time amoxicillin AdvReac Rash Verified 06/10/24 19:16 clindamycin AdvReac Rash Verified 06/10/24 19:14 erythromycin base AdvReac Rash Verified 06/10/24 19:15 nabumetone AdvReac Rash Verified 06/10/24 19:17 Penicillins AdvReac Rash Verified 06/10/24 19:16 Sulfa (Sulfonamide AdvReac Rash Verified 06/10/24 19:18 Antibiotics) [Sulfonamides] Assessment & Plan Assessment & Plan (1) Major neurocognitive disorder: Status: Acute Code(s): F03.90 - Unspecified dementia, unspecified severity, without behavioral disturbance, psychotic disturbance, mood disturbance, and anxiety Plan Mrs. Rosa is a 84 year-old woman with hx of dementia who recently moved to [facility] in 03/2024. Pt was sent via EMS from the [facility] to [facility] due to combative behaviors, refusing care and HI towards daughter. Medical work remarkable for elevated TSH initially 27 to 12. Elevated troponin but seen by cardiology who felt not ischemia, but increased demand. On the unit, pt presents as irritable and upset with daughter, mostly because of placement to [facility] and not being at home. No overt psychosis or delusions noted. No SI/HI. She declines any medications for mood. Other than irritability, no combative behaviors. MOCA and ACL 4.6 show moderate cognitive decline. PLAN 06/13 planning dc at end of sect 12b on 06/16 06/14 continue tx. irritable, no combative behaviors 06/15 spoke with daughter who is HCP. HCP reports pt more irritable in last few weeks, initially when moved to the [facility] she seemed to be adjusting well, but in past two weeks seemed very irritable, blaming daughter, seemed more suspicious towards staff at the [facility]. decided to do further medication adjustments, switch to olanzapine 5mg po qhs and add aricept 5mg po qhs. 06/16 continue tx. 06/17 continue tx. 06/18 continue tx. 06/19 continue tx. plan to dc next week. Reason for continued inpatient stay Substantial Risk for: inability to function Time Spent With Patient Time: Total time managing care of this patient today ____ minutes.
[2024-06-19 20:00] VITALS: BP 130/63; PULSE 71; RESP 18; TEMP 36.1; O2SAT 99
[2024-06-19] MEDS: predniSONE 5 MG TABLET 10 MG PO (20:57)
[2024-06-19] MEDS: Donepezil HCl 5 MG TABLET PO (20:57)
[2024-06-19] MEDS: OLANZapine 5 MG TABLET PO (20:57)
[2024-06-20] MEDS: Levothyroxine Sodium 125 MCG TABLET PO (05:59)
[2024-06-20] MEDS: Omeprazole 20 MG CAPSULE.DR PO (05:59)
[2024-06-20 08:54] VITALS: BP 149/67; PULSE 92; RESP 24; TEMP 35.9; O2SAT 95
[2024-06-20] MEDS: Hydroxychloroquine Sulfate 200 MG TABLET PO ×2 (08:56→20:17)
[2024-06-20] MEDS: estradioL 0.5 MG TABLET 1 MG PO (08:57)
[2024-06-20] MEDS: Losartan Potassium 50 MG TABLET 100 MG PO (08:57)
[2024-06-20] MEDS: predniSONE 5 MG TABLET PO (08:58)
--- NOTE | 2024-06-20 13:37 | P.PNPSI_ITS ---
Subjective Subjective Date of Service: 06/20/24 Reason For Visit: Psychosis Interim History: Patient reports not happy. Can't verbalize clearly. Denies pain. She is mostly in her room. No behavioral concerns. Tolerating medication changes well. Review of Systems Review of Systems No SOB, no chest pain. No constipation She reports back pain Mental Status Exam Mental Status Exam Narrative: Appearance: wearing hospital gown, fair hygiene, in NAD Behavior: irritable or guarded Psychomotor: mild intermittent agitation Speech: clear, normal rate/rhythm, spontaneous, low volume voice hx of vocal cord injury TP: linear TC: upset with daugther, hoping she can be independent again Mood: upset Affect: irritable SI: denies HI: denies VH/AH: none Delusions: none Insight/judgment: poor x 2. memory/cog: alert, oriented x 3. some confusion about why she is here. MOCA completed on 06/12/2024, impairments in executive function/visuospatial (2/5), naming 2/3, language fluency (0/1), intact orientation. ACL 4.6 Diagnostics Vital Signs (24Hr): Vital Signs - 24 hr 06/19/24 20:00 06/20/24 08:54 Temperature 96.9 F 96.7 F L Pulse Rate 71 92 Respiratory Rate 18 24 H Blood Pressure 130/63 149/67 H Pulse Oximetry 99 95 Oxygen Delivery Method Room Air Room Air BMI result Body Mass Index 31.6 Labs 06/11/24 07:26 Medications Medications Current Medications Acetaminophen (Acetaminophen 325 Mg Tablet) 650 mg PO Q6H PRN PRN Reason: Headache/Pain, Scale 1-10 Last Admin: 06/17/24 13:51 Dose: 650 mg Al Hydroxide/Mg Hydroxide (Magnesium Hydrox/Alum Hydrox 30 Ml Oral.Susp) 30 ml PO Q6H PRN PRN Reason: Heartburn/Nausea Donepezil HCl (Donepezil Hcl 5 Mg Tablet) 5 mg PO BEDTIME [facility] Last Admin: 06/19/24 20:57 Dose: 5 mg Estradiol (Estradiol 0.5 Mg Tablet) 1 mg PO DAILY [facility] Last Admin: 06/20/24 08:57 Dose: 1 mg Hydroxychloroquine Sulfate (Hydroxychloroquine Sulfate 200 Mg Tablet) 200 mg PO BID [facility] Last Admin: 06/20/24 08:56 Dose: 200 mg Levothyroxine Sodium (Levothyroxine Sodium 125 Mcg Tablet) 125 mcg PO DAILY@0630 [facility] Last Admin: 06/20/24 05:59 Dose: 125 mcg Losartan Potassium (Losartan Potassium 50 Mg Tablet) 100 mg PO DAILY [facility]; Protocol Last Admin: 06/20/24 08:57 Dose: 100 mg Magnesium Hydroxide (Milk Of Magnesia 30 Ml Oral.Susp) 30 ml PO DAILY PRN PRN Reason: Constipation Metoprolol Tartrate (Metoprolol Tartrate 25 Mg Tablet) 25 mg PO DAILY [facility]; Protocol Nicotine Polacrilex (Nicotine Polacrilex 2 Mg Gum) 4 mg BUCCAL Q2H PRN PRN Reason: Nicotine Cravings Olanzapine (Olanzapine 5 Mg Tablet) 5 mg PO BEDTIME [facility] Last Admin: 06/19/24 20:57 Dose: 5 mg Omeprazole (Omeprazole 20 Mg Capsule.Dr) 20 mg PO DAILY@0630 [facility] Last Admin: 06/20/24 05:59 Dose: 20 mg Prednisone (Prednisone 5 Mg Tablet) 10 mg PO BEDTIME [facility] Last Admin: 06/19/24 20:57 Dose: 10 mg Prednisone (Prednisone 5 Mg Tablet) 5 mg PO DAILY [facility] Last Admin: 06/20/24 08:58 Dose: 5 mg Quetiapine Fumarate (Quetiapine Fumarate 50 Mg Tablet) 50 mg PO TID PRN PRN Reason: severe anxiety/agitation Trazodone HCl (Trazodone Hcl 25 Mg Halftab) 25 mg PO BEDTIME MRX1 PRN PRN Reason: Insomnia Allergies Allergies Allergy/AdvReac Type Severity Reaction Status Date / Time amoxicillin AdvReac Rash Verified 06/10/24 19:16 clindamycin AdvReac Rash Verified 06/10/24 19:14 erythromycin base AdvReac Rash Verified 06/10/24 19:15 nabumetone AdvReac Rash Verified 06/10/24 19:17 Penicillins AdvReac Rash Verified 06/10/24 19:16 Sulfa (Sulfonamide AdvReac Rash Verified 06/10/24 19:18 Antibiotics) [Sulfonamides] Assessment & Plan Assessment & Plan (1) Major neurocognitive disorder: Status: Acute Code(s): F03.90 - Unspecified dementia, unspecified severity, without behavioral disturbance, psychotic disturbance, mood disturbance, and anxiety Plan Mrs. Rosa is a 84 year-old woman with hx of dementia who recently moved to [facility] in 03/2024. Pt was sent via EMS from the [facility] to [facility] due to combative behaviors, refusing care and HI towards daughter. Medical work remarkable for elevated TSH initially 27 to 12. Elevated troponin but seen by cardiology who felt not ischemia, but increased demand. On the unit, pt presents as irritable and upset with daughter, mostly because of placement to [facility] and not being at home. No overt psychosis or delusions noted. No SI/HI. She declines any medications for mood. Other than irritability, no combative behaviors. MOCA and ACL 4.6 show moderate cognitive decline. PLAN 06/13 planning dc at end of sect 12b on 06/16 06/14 continue tx. irritable, no combative behaviors 06/15 spoke with daughter who is HCP. HCP reports pt more irritable in last few weeks, initially when moved to the [facility] she seemed to be adjusting well, but in past two weeks seemed very irritable, blaming daughter, seemed more suspicious towards staff at the [facility]. decided to do further medication adjustments, switch to olanzapine 5mg po qhs and add aricept 5mg po qhs. 06/16 continue tx. 06/17 continue tx. 06/18 continue tx. 06/19 continue tx. plan to dc next week. 06/20: continue current management and treatment plan. Reason for continued inpatient stay Substantial Risk for: inability to function and rapid decompensation Time Spent With Patient Time: Total time managing care of this patient today ____ minutes.
[2024-06-20 20:00] VITALS: BP 121/68; PULSE 96; RESP 17; TEMP 36.2; O2SAT 96
[2024-06-20] MEDS: Donepezil HCl 5 MG TABLET PO (20:16)
[2024-06-20] MEDS: OLANZapine 5 MG TABLET PO (20:17)
[2024-06-20] MEDS: predniSONE 5 MG TABLET 10 MG PO (20:17)
[2024-06-21] MEDS: Levothyroxine Sodium 125 MCG TABLET PO (05:48)
[2024-06-21] MEDS: Omeprazole 20 MG CAPSULE.DR PO (05:48)
[2024-06-21 08:30] VITALS: BP 146/72; PULSE 100; RESP 20; TEMP 35.8; O2SAT 96
[2024-06-21] MEDS: estradioL 0.5 MG TABLET 1 MG PO (08:32)
[2024-06-21] MEDS: predniSONE 5 MG TABLET PO (08:33)
[2024-06-21] MEDS: Losartan Potassium 50 MG TABLET 100 MG PO (08:33)
[2024-06-21] MEDS: Hydroxychloroquine Sulfate 200 MG TABLET PO ×2 (08:34→20:27)
--- NOTE | 2024-06-21 14:20 | HO.PSYCHPN ---
Subjective Subjective Date of Service: 06/21/24 Reason For Visit: Psychosis Interim History: Patient reports she is feeling same old same old... SOSO today. No exceptions . She was observed in the milieu. She is calm and cooperative. She is confused and told RN it is 1975. Her affect is bright. No behavioral concerns. Tolerating medication changes well. Review of Systems Review of Systems No SOB, no chest pain. No constipation She reports back pain Mental Status Exam Mental Status Exam Narrative: Appearance: wearing hospital gown, fair hygiene, in NAD Behavior: irritable or guarded Psychomotor: mild intermittent agitation Speech: clear, normal rate/rhythm, spontaneous, low volume voice hx of vocal cord injury TP: linear TC: upset with daugther, hoping she can be independent again Mood: upset Affect: irritable SI: denies HI: denies VH/AH: none Delusions: none Insight/judgment: poor x 2. memory/cog: alert, oriented x 3. some confusion about why she is here. MOCA completed on 06/12/2024, impairments in executive function/visuospatial (2/5), naming 2/3, language fluency (0/1), intact orientation. ACL 4.6 Diagnostics Vital Signs (24Hr): Vital Signs - 24 hr 06/20/24 20:00 06/21/24 08:30 Temperature 97.2 F 96.5 F L Pulse Rate 96 100 Respiratory Rate 17 20 Blood Pressure 121/68 146/72 H Pulse Oximetry 96 96 Oxygen Delivery Method Room Air Room Air BMI result Body Mass Index 31.6 Labs 06/11/24 07:26 Medications Medications Current Medications Acetaminophen (Acetaminophen 325 Mg Tablet) 650 mg PO Q6H PRN PRN Reason: Headache/Pain, Scale 1-10 Last Admin: 06/17/24 13:51 Dose: 650 mg Al Hydroxide/Mg Hydroxide (Magnesium Hydrox/Alum Hydrox 30 Ml Oral.Susp) 30 ml PO Q6H PRN PRN Reason: Heartburn/Nausea Donepezil HCl (Donepezil Hcl 5 Mg Tablet) 5 mg PO BEDTIME [facility] Last Admin: 06/20/24 20:16 Dose: 5 mg Estradiol (Estradiol 0.5 Mg Tablet) 1 mg PO DAILY [facility] Last Admin: 06/21/24 08:32 Dose: 1 mg Hydroxychloroquine Sulfate (Hydroxychloroquine Sulfate 200 Mg Tablet) 200 mg PO BID [facility] Last Admin: 06/21/24 08:34 Dose: 200 mg Levothyroxine Sodium (Levothyroxine Sodium 125 Mcg Tablet) 125 mcg PO DAILY@0630 [facility] Last Admin: 06/21/24 05:48 Dose: 125 mcg Losartan Potassium (Losartan Potassium 50 Mg Tablet) 100 mg PO DAILY [facility]; Protocol Last Admin: 06/21/24 08:33 Dose: 100 mg Magnesium Hydroxide (Milk Of Magnesia 30 Ml Oral.Susp) 30 ml PO DAILY PRN PRN Reason: Constipation Metoprolol Tartrate (Metoprolol Tartrate 25 Mg Tablet) 25 mg PO DAILY [facility]; Protocol Nicotine Polacrilex (Nicotine Polacrilex 2 Mg Gum) 4 mg BUCCAL Q2H PRN PRN Reason: Nicotine Cravings Olanzapine (Olanzapine 5 Mg Tablet) 5 mg PO BEDTIME [facility] Last Admin: 06/20/24 20:17 Dose: 5 mg Omeprazole (Omeprazole 20 Mg Capsule.Dr) 20 mg PO DAILY@0630 [facility] Last Admin: 06/21/24 05:48 Dose: 20 mg Prednisone (Prednisone 5 Mg Tablet) 10 mg PO BEDTIME [facility] Last Admin: 06/20/24 20:17 Dose: 10 mg Prednisone (Prednisone 5 Mg Tablet) 5 mg PO DAILY [facility] Last Admin: 06/21/24 08:33 Dose: 5 mg Quetiapine Fumarate (Quetiapine Fumarate 50 Mg Tablet) 50 mg PO TID PRN PRN Reason: severe anxiety/agitation Trazodone HCl (Trazodone Hcl 25 Mg Halftab) 25 mg PO BEDTIME MRX1 PRN PRN Reason: Insomnia Allergies Allergies Allergy/AdvReac Type Severity Reaction Status Date / Time amoxicillin AdvReac Rash Verified 06/10/24 19:16 clindamycin AdvReac Rash Verified 06/10/24 19:14 erythromycin base AdvReac Rash Verified 06/10/24 19:15 nabumetone AdvReac Rash Verified 06/10/24 19:17 Penicillins AdvReac Rash Verified 06/10/24 19:16 Sulfa (Sulfonamide AdvReac Rash Verified 06/10/24 19:18 Antibiotics) [Sulfonamides] Assessment & Plan Assessment & Plan (1) Major neurocognitive disorder: Status: Acute Code(s): F03.90 - Unspecified dementia, unspecified severity, without behavioral disturbance, psychotic disturbance, mood disturbance, and anxiety Plan Mrs. Moe is a 84 year-old woman with hx of dementia who recently moved to [facility] in 03/2024. Pt was sent via EMS from the [facility] to [facility] due to combative behaviors, refusing care and HI towards daughter. Medical work remarkable for elevated TSH initially 27 to 12. Elevated troponin but seen by cardiology who felt not ischemia, but increased demand. On the unit, pt presents as irritable and upset with daughter, mostly because of placement to [facility] and not being at home. No overt psychosis or delusions noted. No SI/HI. She declines any medications for mood. Other than irritability, no combative behaviors. MOCA and ACL 4.6 show moderate cognitive decline. PLAN 06/13 planning dc at end of sect 12b on 06/16 06/14 continue tx. irritable, no combative behaviors 06/15 spoke with daughter who is HCP. HCP reports pt more irritable in last few weeks, initially when moved to the [facility] she seemed to be adjusting well, but in past two weeks seemed very irritable, blaming daughter, seemed more suspicious towards staff at the [facility]. decided to do further medication adjustments, switch to olanzapine 5mg po qhs and add aricept 5mg po qhs. 06/16 continue tx. 06/17 continue tx. 06/18 continue tx. 06/19 continue tx. plan to dc next week. 06/20: continue current management and treatment plan. 06/21: continue current management and treatment plan. Reason for continued inpatient stay Substantial Risk for: inability to function and rapid decompensation Time Spent With Patient Time: Total time managing care of this patient today ____ minutes.
--- NOTE | 2024-06-21 14:41 | PC.NURSE ---
patient complained of vision changes in her right eye this past week. She now has blurry vision in her right eye with no vision field loss. There isn't any obvious injury, pain, swelling discharge or redness. Dr. Badillo updated. No action needed now , can follow up as out patient unless patient experiences sudden pain or vision loss then she would need to be seen in the hospital.
[2024-06-21 20:00] VITALS: BP 141/61; PULSE 95; RESP 18; TEMP 36.1; O2SAT 95
[2024-06-21] MEDS: Donepezil HCl 5 MG TABLET PO (20:27)
[2024-06-21] MEDS: predniSONE 5 MG TABLET 10 MG PO (20:27)
[2024-06-21] MEDS: OLANZapine 5 MG TABLET PO (20:30)
[2024-06-22] MEDS: Levothyroxine Sodium 125 MCG TABLET PO (06:02)
[2024-06-22] MEDS: Omeprazole 20 MG CAPSULE.DR PO (06:02)
[2024-06-22 08:14] VITALS: BP 148/91; PULSE 86; RESP 18; TEMP 36.8; O2SAT 95
[2024-06-22] MEDS: estradioL 0.5 MG TABLET 1 MG PO (08:19)
[2024-06-22] MEDS: Hydroxychloroquine Sulfate 200 MG TABLET PO ×2 (08:20→20:29)
[2024-06-22] MEDS: predniSONE 5 MG TABLET PO (08:20)
[2024-06-22] MEDS: Losartan Potassium 50 MG TABLET 100 MG PO (08:20)
--- NOTE | 2024-06-22 09:37 | HO.PSYCHPN ---
Subjective Subjective Date of Service: 06/22/24 Reason For Visit: Psychosis Subjective Notes: Conditional Voluntary Healthcare Proxy: Yes Interim History: Pt slept through the night. Pt reports she is doing well. affect appears brighter, less irritable although insight into extend of cognitive impairment is limited. She denies SI/HI. No aggression towards self or others. taking medications as prescribed. Review of Systems Review of Systems No SOB, no chest pain. No constipation She reports back pain Mental Status Exam Mental Status Exam Narrative: Appearance: wearing hospital gown, fair hygiene, in NAD Behavior: irritable or guarded Psychomotor: mild intermittent agitation Speech: clear, normal rate/rhythm, spontaneous, low volume voice hx of vocal cord injury TP: linear TC: upset with daughter, hoping she can be independent again Mood: good Affect: brighter, less irritable. SI: denies HI: denies VH/AH: none Delusions: none Insight/judgment: poor x 2. memory/cog: alert, oriented x 3. some confusion about why she is here. MOCA completed on 06/12/2024, impairments in executive function/visuospatial (2/5), naming 2/3, language fluency (0/1), intact orientation. ACL 4.6 Diagnostics Vital Signs (24Hr): Vital Signs - 24 hr 06/21/24 20:00 06/22/24 08:14 Temperature 96.9 F 98.2 F Pulse Rate 95 86 Respiratory Rate 18 18 Blood Pressure 141/61 H 148/91 H Pulse Oximetry 95 95 Oxygen Delivery Method Room Air Room Air BMI result Body Mass Index 31.6 Labs 06/22/24 11:38 Medications Medications Current Medications Acetaminophen (Acetaminophen 325 Mg Tablet) 650 mg PO Q6H PRN PRN Reason: Headache/Pain, Scale 1-10 Last Admin: 06/17/24 13:51 Dose: 650 mg Al Hydroxide/Mg Hydroxide (Magnesium Hydrox/Alum Hydrox 30 Ml Oral.Susp) 30 ml PO Q6H PRN PRN Reason: Heartburn/Nausea Donepezil HCl (Donepezil Hcl 5 Mg Tablet) 5 mg PO BEDTIME [facility] Last Admin: 06/21/24 20:27 Dose: 5 mg Estradiol (Estradiol 0.5 Mg Tablet) 1 mg PO DAILY [facility] Last Admin: 06/22/24 08:19 Dose: 1 mg Hydroxychloroquine Sulfate (Hydroxychloroquine Sulfate 200 Mg Tablet) 200 mg PO BID [facility] Last Admin: 06/22/24 08:20 Dose: 200 mg Levothyroxine Sodium (Levothyroxine Sodium 125 Mcg Tablet) 125 mcg PO DAILY@0630 [facility] Last Admin: 06/22/24 06:02 Dose: 125 mcg Losartan Potassium (Losartan Potassium 50 Mg Tablet) 100 mg PO DAILY [facility]; Protocol Last Admin: 06/22/24 08:20 Dose: 100 mg Magnesium Hydroxide (Milk Of Magnesia 30 Ml Oral.Susp) 30 ml PO DAILY PRN PRN Reason: Constipation Metoprolol Tartrate (Metoprolol Tartrate 25 Mg Tablet) 25 mg PO DAILY [facility]; Protocol Nicotine Polacrilex (Nicotine Polacrilex 2 Mg Gum) 4 mg BUCCAL Q2H PRN PRN Reason: Nicotine Cravings Olanzapine (Olanzapine 5 Mg Tablet) 5 mg PO BEDTIME [facility] Last Admin: 06/21/24 20:30 Dose: 5 mg Omeprazole (Omeprazole 20 Mg Capsule.Dr) 20 mg PO DAILY@629 [facility] Last Admin: 06/22/24 06:02 Dose: 20 mg Prednisone (Prednisone 5 Mg Tablet) 10 mg PO BEDTIME [facility] Last Admin: 06/21/24 20:27 Dose: 10 mg Prednisone (Prednisone 5 Mg Tablet) 5 mg PO DAILY [facility] Last Admin: 06/22/24 08:20 Dose: 5 mg Quetiapine Fumarate (Quetiapine Fumarate 50 Mg Tablet) 50 mg PO TID PRN PRN Reason: severe anxiety/agitation Trazodone HCl (Trazodone Hcl 25 Mg Halftab) 25 mg PO BEDTIME MRX1 PRN PRN Reason: Insomnia Allergies Allergies Allergy/AdvReac Type Severity Reaction Status Date / Time amoxicillin AdvReac Rash Verified 06/10/24 19:16 clindamycin AdvReac Rash Verified 06/10/24 19:14 erythromycin base AdvReac Rash Verified 06/10/24 19:15 nabumetone AdvReac Rash Verified 06/10/24 19:17 Penicillins AdvReac Rash Verified 06/10/24 19:16 Sulfa (Sulfonamide AdvReac Rash Verified 06/10/24 19:18 Antibiotics) [Sulfonamides] Assessment & Plan Assessment & Plan (1) Major neurocognitive disorder: Status: Acute Code(s): F03.90 - Unspecified dementia, unspecified severity, without behavioral disturbance, psychotic disturbance, mood disturbance, and anxiety Plan Mrs. Rosa is a 84 year-old woman with hx of dementia who recently moved to [facility] in 03/2024. Pt was sent via EMS from the [facility] to [facility] due to combative behaviors, refusing care and HI towards daughter. Medical work remarkable for elevated TSH initially 27 to 12. Elevated troponin but seen by cardiology who felt not ischemia, but increased demand. On the unit, pt presents as irritable and upset with daughter, mostly because of placement to [facility] and not being at home. No overt psychosis or delusions noted. No SI/HI. She declines any medications for mood. Other than irritability, no combative behaviors. MOCA and ACL 4.6 show moderate cognitive decline. PLAN 06/13 planning dc at end of sect 12b on 06/16 06/14 continue tx. irritable, no combative behaviors 06/15 spoke with daughter who is HCP. HCP reports pt more irritable in last few weeks, initially when moved to the [facility] she seemed to be adjusting well, but in past two weeks seemed very irritable, blaming daughter, seemed more suspicious towards staff at the [facility]. decided to do further medication adjustments, switch to olanzapine 5mg po qhs and add aricept 5mg po qhs. 06/16 continue tx. 06/17 continue tx. 06/18 continue tx. 06/19 continue tx. plan to dc next week. 06/20: continue current management and treatment plan. 06/21: continue current management and treatment plan. 06/22 continue tx. plan for d/c this week. Reason for continued inpatient stay Substantial Risk for: inability to function Time Spent With Patient Time: Total time managing care of this patient today ____ minutes.
[2024-06-22 12:00] LABS: Alanine Aminotransferase 24 U/L (0-31); Albumin Level 3.6 g/dL (3.5-5.0); Alkaline Phosphatase 59 U/L (39-117); Anion Gap 11 (12-20); Aspartate Amino Transferase 28 U/L (5-31); Bilirubin Total 0.4 mg/dL (0.0-1.0); Blood Urea Nitrogen 33 mg/dL (9-16); Calcium 8.3 mg/dL (8.4-10.2); Carbon Dioxide 25 mmol/L (22-29); Chloride 108 mmol/L (96-108); Creatinine Clr Calc Pharmacy 59.2; Estimated Glomerular Filt Rate > 60; Glucose Random 118 mg/dL (60-115); Potassium 4.6 mmol/L (3.3-5.1); Sodium 139 mmol/L (135-145); Total Protein 6.3 g/dL (6.5-8.0)
[2024-06-22 20:00] VITALS: BP 134/65; PULSE 103; RESP 18; TEMP 36.6; O2SAT 96
[2024-06-22] MEDS: OLANZapine 5 MG TABLET PO (20:29)
[2024-06-22] MEDS: Donepezil HCl 5 MG TABLET PO (20:29)
[2024-06-22] MEDS: predniSONE 5 MG TABLET 10 MG PO (20:29)
[2024-06-23] MEDS: Omeprazole 20 MG CAPSULE.DR PO (06:07)
[2024-06-23] MEDS: Levothyroxine Sodium 125 MCG TABLET PO (06:07)
[2024-06-23 08:00] VITALS: BP 160/78; PULSE 80; RESP 18; TEMP 36.4; O2SAT 93
[2024-06-23] MEDS: predniSONE 5 MG TABLET PO (08:42)
[2024-06-23] MEDS: estradioL 0.5 MG TABLET 1 MG PO (08:42)
[2024-06-23] MEDS: Hydroxychloroquine Sulfate 200 MG TABLET PO ×2 (08:42→20:12)
[2024-06-23] MEDS: Losartan Potassium 50 MG TABLET 100 MG PO (08:42)
--- NOTE | 2024-06-23 16:39 | P.PNPSI_ITS ---
Subjective Subjective Date of Service: 06/23/24 Reason For Visit: Psychosis Subjective Notes: Conditional Voluntary Healthcare Proxy: Yes Interim History: Pt slept through the night. Pt reports she is doing well. affect appears brighter, less irritable although insight into extend of cognitive impairment is limited. She asks when she can be discharged. No overt behavioral concerns. She denies SI/HI. No aggression towards self or others. taking medications as prescribed. Review of Systems Review of Systems No SOB, no chest pain. No constipation She reports back pain Mental Status Exam Mental Status Exam Narrative: Appearance: wearing hospital gown, fair hygiene, in NAD Behavior: irritable or guarded Psychomotor: mild intermittent agitation Speech: clear, normal rate/rhythm, spontaneous, low volume voice hx of vocal cord injury TP: linear TC: upset with daughter, hoping she can be independent again Mood: good Affect: brighter, less irritable. SI: denies HI: denies VH/AH: none Delusions: none Insight/judgment: poor x 2. memory/cog: alert, oriented x 3. some confusion about why she is here. MOCA completed on 06/12/2024, impairments in executive function/visuospatial (2/5), naming 2/3, language fluency (0/1), intact orientation. ACL 4.6 Diagnostics Vital Signs (24Hr): Vital Signs - 24 hr 06/22/24 20:00 06/23/24 08:00 Temperature 97.9 F 97.5 F Pulse Rate 103 H 80 Respiratory Rate 18 18 Blood Pressure 134/65 160/78 H Pulse Oximetry 96 93 Oxygen Delivery Method Room Air Room Air BMI result Body Mass Index 31.6 Labs 06/22/24 11:38 Labs: Laboratory Results - last 48 hr 06/22/24 11:38 Sodium 139 Potassium 4.6 Chloride 108 Carbon Dioxide 25 Anion Gap 11 L BUN 33 H Creatinine 0.78 Estim Creat Clear Calc 59.2 Estimated GFR > 60 Random Glucose 118 H Calcium 8.3 L D Total Bilirubin 0.4 AST 28 ALT 24 Alkaline Phosphatase 59 Total Protein 6.3 L Albumin 3.6 Medications Medications Current Medications Acetaminophen (Acetaminophen 325 Mg Tablet) 650 mg PO Q6H PRN PRN Reason: Headache/Pain, Scale 1-10 Last Admin: 06/17/24 13:51 Dose: 650 mg Al Hydroxide/Mg Hydroxide (Magnesium Hydrox/Alum Hydrox 30 Ml Oral.Susp) 30 ml PO Q6H PRN PRN Reason: Heartburn/Nausea Donepezil HCl (Donepezil Hcl 5 Mg Tablet) 5 mg PO BEDTIME [facility] Last Admin: 06/22/24 20:29 Dose: 5 mg Estradiol (Estradiol 0.5 Mg Tablet) 1 mg PO DAILY [facility] Last Admin: 06/23/24 08:42 Dose: 1 mg Hydroxychloroquine Sulfate (Hydroxychloroquine Sulfate 200 Mg Tablet) 200 mg PO BID [facility] Last Admin: 06/23/24 08:42 Dose: 200 mg Levothyroxine Sodium (Levothyroxine Sodium 125 Mcg Tablet) 125 mcg PO DAILY@0630 [facility] Last Admin: 06/23/24 06:07 Dose: 125 mcg Losartan Potassium (Losartan Potassium 50 Mg Tablet) 100 mg PO DAILY [facility]; Protocol Last Admin: 06/23/24 08:42 Dose: 100 mg Magnesium Hydroxide (Milk Of Magnesia 30 Ml Oral.Susp) 30 ml PO DAILY PRN PRN Reason: Constipation Metoprolol Tartrate (Metoprolol Tartrate 25 Mg Tablet) 25 mg PO DAILY [facility]; Protocol Nicotine Polacrilex (Nicotine Polacrilex 2 Mg Gum) 4 mg BUCCAL Q2H PRN PRN Reason: Nicotine Cravings Olanzapine (Olanzapine 5 Mg Tablet) 5 mg PO BEDTIME [facility] Last Admin: 06/22/24 20:29 Dose: 5 mg Omeprazole (Omeprazole 20 Mg Capsule.Dr) 20 mg PO DAILY@0630 [facility] Last Admin: 06/23/24 06:07 Dose: 20 mg Prednisone (Prednisone 5 Mg Tablet) 10 mg PO BEDTIME [facility] Last Admin: 06/22/24 20:29 Dose: 10 mg Prednisone (Prednisone 5 Mg Tablet) 5 mg PO DAILY [facility] Last Admin: 06/23/24 08:42 Dose: 5 mg Quetiapine Fumarate (Quetiapine Fumarate 50 Mg Tablet) 50 mg PO TID PRN PRN Reason: severe anxiety/agitation Trazodone HCl (Trazodone Hcl 25 Mg Halftab) 25 mg PO BEDTIME MRX1 PRN PRN Reason: Insomnia Allergies Allergies Allergy/AdvReac Type Severity Reaction Status Date / Time amoxicillin AdvReac Rash Verified 06/10/24 19:16 clindamycin AdvReac Rash Verified 06/10/24 19:14 erythromycin base AdvReac Rash Verified 06/10/24 19:15 nabumetone AdvReac Rash Verified 06/10/24 19:17 Penicillins AdvReac Rash Verified 06/10/24 19:16 Sulfa (Sulfonamide AdvReac Rash Verified 06/10/24 19:18 Antibiotics) [Sulfonamides] Assessment & Plan Assessment & Plan (1) Major neurocognitive disorder: Status: Acute Code(s): F03.90 - Unspecified dementia, unspecified severity, without behavioral disturbance, psychotic disturbance, mood disturbance, and anxiety Plan Mrs. Rosa is a 84 year-old woman with hx of dementia who recently moved to [facility] in 03/2024. Pt was sent via EMS from the [facility] to [facility] due to combative behaviors, refusing care and HI towards daughter. Medical work remarkable for elevated TSH initially 27 to 12. Elevated troponin but seen by cardiology who felt not ischemia, but increased demand. On the unit, pt presents as irritable and upset with daughter, mostly because of placement to [facility] and not being at home. No overt psychosis or delusions noted. No SI/HI. She declines any medications for mood. Other than irritability, no combative behaviors. MOCA and ACL 4.6 show moderate cognitive decline. PLAN 06/13 planning dc at end of sect 12b on 06/16 06/14 continue tx. irritable, no combative behaviors 06/15 spoke with daughter who is HCP. HCP reports pt more irritable in last few weeks, initially when moved to the [facility] she seemed to be adjusting well, but in past two weeks seemed very irritable, blaming daughter, seemed more suspicious towards staff at the [facility]. decided to do further medication adjustments, switch to olanzapine 5mg po qhs and add aricept 5mg po qhs. 06/16 continue tx. 06/17 continue tx. 06/18 continue tx. 06/19 continue tx. plan to dc next week. 06/20: continue current management and treatment plan. 06/21: continue current management and treatment plan. 06/22 continue tx. plan for d/c this week. 06/23 continue tx. Reason for continued inpatient stay Substantial Risk for: inability to function Time Spent With Patient Time: Total time managing care of this patient today ____ minutes.
[2024-06-23 20:00] VITALS: BP 130/76; PULSE 88; RESP 16; TEMP 36.3; O2SAT 97
[2024-06-23] MEDS: Donepezil HCl 5 MG TABLET PO (20:09)
[2024-06-23] MEDS: predniSONE 5 MG TABLET 10 MG PO (20:13)
[2024-06-23] MEDS: Acetaminophen 325 MG TABLET 650 MG PO (20:13)
[2024-06-23] MEDS: OLANZapine 5 MG TABLET PO (20:13)
[2024-06-24] MEDS: Levothyroxine Sodium 125 MCG TABLET PO (05:36)
[2024-06-24] MEDS: Omeprazole 20 MG CAPSULE.DR PO (05:45)
[2024-06-24 08:00] VITALS: BP 165/86; PULSE 73; RESP 16; TEMP 36.9; O2SAT 97
[2024-06-24] MEDS: Losartan Potassium 50 MG TABLET 100 MG PO (08:12)
[2024-06-24] MEDS: Hydroxychloroquine Sulfate 200 MG TABLET PO ×2 (08:13→20:30)
[2024-06-24] MEDS: estradioL 0.5 MG TABLET 1 MG PO (08:14)
[2024-06-24] MEDS: predniSONE 5 MG TABLET PO (08:16)
--- NOTE | 2024-06-24 12:08 | HO.PSYCHPN ---
Subjective Subjective Date of Service: 06/24/24 Reason For Visit: Psychosis Subjective Notes: Conditional Voluntary Healthcare Proxy: Yes Interim History: Pt slept through the night. Pt reports she is doing well. She reports she is bored here. She denies SI/HI. No aggression towards self or others. taking medications as prescribed. plan for d/c 06/29/2024. Medication Compliance: Yes Review of Systems Review of Systems No SOB, no chest pain. No constipation She reports back pain Mental Status Exam Mental Status Exam Narrative: Appearance: wearing hospital gown, fair hygiene, in NAD Behavior: irritable or guarded Psychomotor: mild intermittent agitation Speech: clear, normal rate/rhythm, spontaneous, low volume voice hx of vocal cord injury TP: linear TC: upset with daughter, hoping she can be independent again Mood: good Affect: brighter, less irritable. SI: denies HI: denies VH/AH: none Delusions: none Insight/judgment: poor x 2. memory/cog: alert, oriented x 3. some confusion about why she is here. MOCA completed on 06/12/2024, impairments in executive function/visuospatial (2/5), naming 2/3, language fluency (0/1), intact orientation. ACL 4.6 Diagnostics Vital Signs (24Hr): Vital Signs - 24 hr 06/23/24 20:00 06/24/24 08:00 Temperature 97.3 F 98.4 F Pulse Rate 88 73 Respiratory Rate 16 16 Blood Pressure 130/76 165/86 H Pulse Oximetry 97 97 Oxygen Delivery Method Room Air Room Air BMI result Body Mass Index 31.6 Labs 06/22/24 11:38 Medications Medications Current Medications Acetaminophen (Acetaminophen 325 Mg Tablet) 650 mg PO Q6H PRN PRN Reason: Headache/Pain, Scale 1-10 Last Admin: 06/23/24 20:13 Dose: 650 mg Al Hydroxide/Mg Hydroxide (Magnesium Hydrox/Alum Hydrox 30 Ml Oral.Susp) 30 ml PO Q6H PRN PRN Reason: Heartburn/Nausea Donepezil HCl (Donepezil Hcl 5 Mg Tablet) 5 mg PO BEDTIME [facility] Last Admin: 06/23/24 20:09 Dose: 5 mg Estradiol (Estradiol 0.5 Mg Tablet) 1 mg PO DAILY [facility] Last Admin: 06/24/24 08:14 Dose: 1 mg Hydroxychloroquine Sulfate (Hydroxychloroquine Sulfate 200 Mg Tablet) 200 mg PO BID [facility] Last Admin: 06/24/24 08:13 Dose: 200 mg Levothyroxine Sodium (Levothyroxine Sodium 125 Mcg Tablet) 125 mcg PO DAILY@06 [facility] Last Admin: 06/24/24 05:36 Dose: 125 mcg Losartan Potassium (Losartan Potassium 50 Mg Tablet) 100 mg PO DAILY [facility]; Protocol Last Admin: 06/24/24 08:12 Dose: 100 mg Magnesium Hydroxide (Milk Of Magnesia 30 Ml Oral.Susp) 30 ml PO DAILY PRN PRN Reason: Constipation Metoprolol Tartrate (Metoprolol Tartrate 25 Mg Tablet) 25 mg PO DAILY [facility]; Protocol Nicotine Polacrilex (Nicotine Polacrilex 2 Mg Gum) 4 mg BUCCAL Q2H PRN PRN Reason: Nicotine Cravings Olanzapine (Olanzapine 5 Mg Tablet) 5 mg PO BEDTIME [facility] Last Admin: 06/23/24 20:13 Dose: 5 mg Omeprazole (Omeprazole 20 Mg Capsule.Dr) 20 mg PO DAILY@629 [facility] Last Admin: 06/24/24 05:45 Dose: 20 mg Prednisone (Prednisone 5 Mg Tablet) 10 mg PO BEDTIME [facility] Last Admin: 06/23/24 20:13 Dose: 10 mg Prednisone (Prednisone 5 Mg Tablet) 5 mg PO DAILY [facility] Last Admin: 06/24/24 08:16 Dose: 5 mg Quetiapine Fumarate (Quetiapine Fumarate 50 Mg Tablet) 50 mg PO TID PRN PRN Reason: severe anxiety/agitation Trazodone HCl (Trazodone Hcl 25 Mg Halftab) 25 mg PO BEDTIME MRX1 PRN PRN Reason: Insomnia Allergies Allergies Allergy/AdvReac Type Severity Reaction Status Date / Time amoxicillin AdvReac Rash Verified 06/10/24 19:16 clindamycin AdvReac Rash Verified 06/10/24 19:14 erythromycin base AdvReac Rash Verified 06/10/24 19:15 nabumetone AdvReac Rash Verified 06/10/24 19:17 Penicillins AdvReac Rash Verified 06/10/24 19:16 Sulfa (Sulfonamide AdvReac Rash Verified 06/10/24 19:18 Antibiotics) [Sulfonamides] Assessment & Plan Assessment & Plan (1) Major neurocognitive disorder: Status: Acute Code(s): F03.90 - Unspecified dementia, unspecified severity, without behavioral disturbance, psychotic disturbance, mood disturbance, and anxiety Plan Mrs. Rosa is a 84 year-old woman with hx of dementia who recently moved to [facility] in 03/2024. Pt was sent via EMS from the [facility] to [facility] due to combative behaviors, refusing care and HI towards daughter. Medical work remarkable for elevated TSH initially 27 to 12. Elevated troponin but seen by cardiology who felt not ischemia, but increased demand. On the unit, pt presents as irritable and upset with daughter, mostly because of placement to [facility] and not being at home. No overt psychosis or delusions noted. No SI/HI. She declines any medications for mood. Other than irritability, no combative behaviors. MOCA and ACL 4.6 show moderate cognitive decline. PLAN 06/13 planning dc at end of sect 12b on 06/16 06/14 continue tx. irritable, no combative behaviors 06/15 spoke with daughter who is HCP. HCP reports pt more irritable in last few weeks, initially when moved to the [facility] she seemed to be adjusting well, but in past two weeks seemed very irritable, blaming daughter, seemed more suspicious towards staff at the [facility]. decided to do further medication adjustments, switch to olanzapine 5mg po qhs and add aricept 5mg po qhs. 06/16 continue tx. 06/17 continue tx. 06/18 continue tx. 06/19 continue tx. plan to dc next week. 06/20: continue current management and treatment plan. 06/21: continue current management and treatment plan. 06/22 continue tx. plan for d/c this week. 06/23 continue tx. 06/24 continue tx. plan for d/c 06/29/2024 Reason for continued inpatient stay Substantial Risk for: inability to function Time Spent With Patient Time: Total time managing care of this patient today ____ minutes.
[2024-06-24 20:00] VITALS: BP 130/68; PULSE 89; RESP 16; TEMP 36.6; O2SAT 95
[2024-06-24] MEDS: Donepezil HCl 5 MG TABLET PO (20:30)
[2024-06-24] MEDS: traZODone HCL 25 MG HALFTAB PO (20:30)
[2024-06-24] MEDS: predniSONE 5 MG TABLET 10 MG PO (20:30)
[2024-06-24] MEDS: OLANZapine 5 MG TABLET PO (20:30)
[2024-06-24] MEDS: Acetaminophen 325 MG TABLET 650 MG PO (20:30)
[2024-06-25] MEDS: Omeprazole 20 MG CAPSULE.DR PO (05:30)
[2024-06-25] MEDS: Levothyroxine Sodium 125 MCG TABLET PO (05:30)
[2024-06-25 07:00] VITALS: BMI 32.3
[2024-06-25 08:17] VITALS: BP 163/88; PULSE 74; RESP 16; TEMP 36.1; O2SAT 96
[2024-06-25] MEDS: Losartan Potassium 50 MG TABLET 100 MG PO (08:18)
[2024-06-25] MEDS: Hydroxychloroquine Sulfate 200 MG TABLET PO ×2 (08:18→20:46)
[2024-06-25] MEDS: predniSONE 5 MG TABLET PO (08:18)
[2024-06-25] MEDS: estradioL 0.5 MG TABLET 1 MG PO (08:19)
--- NOTE | 2024-06-25 08:38 | P.PNPSI_ITS ---
Subjective Subjective Date of Service: 06/25/24 Reason For Visit: Psychosis Subjective Notes: Conditional Voluntary Healthcare Proxy: Yes Interim History: Pt slept through the night. Pt reports she is doing well. She reports she is bored here. She denies SI/HI. No aggression towards self or others. taking medications as prescribed. plan for d/c 06/29/2024. No change. Participating in some groups. Review of Systems Review of Systems No SOB, no chest pain. No constipation She reports back pain Mental Status Exam Mental Status Exam Narrative: Appearance: wearing hospital gown, fair hygiene, in NAD Behavior: irritable or guarded Psychomotor: mild intermittent agitation Speech: clear, normal rate/rhythm, spontaneous, low volume voice hx of vocal cord injury TP: linear TC: upset with daughter, hoping she can be independent again Mood: good Affect: brighter, less irritable. SI: denies HI: denies VH/AH: none Delusions: none Insight/judgment: poor x 2. memory/cog: alert, oriented x 3. some confusion about why she is here. MOCA completed on 06/12/2024, impairments in executive function/visuospatial (2/5), naming 2/3, language fluency (0/1), intact orientation. ACL 4.6 Diagnostics Vital Signs (24Hr): Vital Signs - 24 hr 06/24/24 20:00 06/25/24 08:17 Temperature 97.9 F 97 F Pulse Rate 89 74 Respiratory Rate 16 16 Blood Pressure 130/68 163/88 H Pulse Oximetry 95 96 Oxygen Delivery Method Room Air Room Air BMI result Body Mass Index 31.6 Labs 06/22/24 11:38 Medications Medications Current Medications Acetaminophen (Acetaminophen 325 Mg Tablet) 650 mg PO Q6H PRN PRN Reason: Headache/Pain, Scale 1-10 Last Admin: 06/24/24 20:30 Dose: 650 mg Al Hydroxide/Mg Hydroxide (Magnesium Hydrox/Alum Hydrox 30 Ml Oral.Susp) 30 ml PO Q6H PRN PRN Reason: Heartburn/Nausea Donepezil HCl (Donepezil Hcl 5 Mg Tablet) 5 mg PO BEDTIME [facility] Last Admin: 06/24/24 20:30 Dose: 5 mg Estradiol (Estradiol 0.5 Mg Tablet) 1 mg PO DAILY [facility] Last Admin: 06/25/24 08:19 Dose: 1 mg Hydroxychloroquine Sulfate (Hydroxychloroquine Sulfate 200 Mg Tablet) 200 mg PO BID [facility] Last Admin: 06/25/24 08:18 Dose: 200 mg Levothyroxine Sodium (Levothyroxine Sodium 125 Mcg Tablet) 125 mcg PO DAILY@0630 [facility] Last Admin: 06/25/24 05:30 Dose: 125 mcg Losartan Potassium (Losartan Potassium 50 Mg Tablet) 100 mg PO DAILY [facility]; Protocol Last Admin: 06/25/24 08:18 Dose: 100 mg Magnesium Hydroxide (Milk Of Magnesia 30 Ml Oral.Susp) 30 ml PO DAILY PRN PRN Reason: Constipation Metoprolol Tartrate (Metoprolol Tartrate 25 Mg Tablet) 25 mg PO DAILY [facility]; Protocol Nicotine Polacrilex (Nicotine Polacrilex 2 Mg Gum) 4 mg BUCCAL Q2H PRN PRN Reason: Nicotine Cravings Olanzapine (Olanzapine 5 Mg Tablet) 5 mg PO BEDTIME [facility] Last Admin: 06/24/24 20:30 Dose: 5 mg Omeprazole (Omeprazole 20 Mg Capsule.Dr) 20 mg PO DAILY@629 [facility] Last Admin: 06/25/24 05:30 Dose: 20 mg Prednisone (Prednisone 5 Mg Tablet) 10 mg PO BEDTIME [facility] Last Admin: 06/24/24 20:30 Dose: 10 mg Prednisone (Prednisone 5 Mg Tablet) 5 mg PO DAILY [facility] Last Admin: 06/25/24 08:18 Dose: 5 mg Quetiapine Fumarate (Quetiapine Fumarate 50 Mg Tablet) 50 mg PO TID PRN PRN Reason: severe anxiety/agitation Trazodone HCl (Trazodone Hcl 25 Mg Halftab) 25 mg PO BEDTIME MRX1 PRN PRN Reason: Insomnia Last Admin: 06/24/24 20:30 Dose: 25 mg Allergies Allergies Allergy/AdvReac Type Severity Reaction Status Date / Time amoxicillin AdvReac Rash Verified 06/10/24 19:16 clindamycin AdvReac Rash Verified 06/10/24 19:14 erythromycin base AdvReac Rash Verified 06/10/24 19:15 nabumetone AdvReac Rash Verified 06/10/24 19:17 Penicillins AdvReac Rash Verified 06/10/24 19:16 Sulfa (Sulfonamide AdvReac Rash Verified 06/10/24 19:18 Antibiotics) [Sulfonamides] Assessment & Plan Assessment & Plan (1) Major neurocognitive disorder: Status: Acute Code(s): F03.90 - Unspecified dementia, unspecified severity, without behavioral disturbance, psychotic disturbance, mood disturbance, and anxiety Plan Mrs. Rosa is a 84 year-old woman with hx of dementia who recently moved to [facility] in 03/2024. Pt was sent via EMS from the [facility] to [facility] due to combative behaviors, refusing care and HI towards daughter. Medical work remarkable for elevated TSH initially 27 to 12. Elevated troponin but seen by cardiology who felt not ischemia, but increased demand. On the unit, pt presents as irritable and upset with daughter, mostly because of placement to [facility] and not being at home. No overt psychosis or delusions noted. No SI/HI. She declines any medications for mood. Other than irritability, no combative behaviors. MOCA and ACL 4.6 show moderate cognitive decline. PLAN 06/13 planning dc at end of sect 12b on 06/16 06/14 continue tx. irritable, no combative behaviors 06/15 spoke with daughter who is HCP. HCP reports pt more irritable in last few weeks, initially when moved to the [facility] she seemed to be adjusting well, but in past two weeks seemed very irritable, blaming daughter, seemed more suspicious towards staff at the [facility]. decided to do further medication adjustments, switch to olanzapine 5mg po qhs and add aricept 5mg po qhs. 06/16 continue tx. 06/17 continue tx. 06/18 continue tx. 06/19 continue tx. plan to dc next week. 06/20: continue current management and treatment plan. 06/21: continue current management and treatment plan. 06/22 continue tx. plan for d/c this week. 06/23 continue tx. 06/24 continue tx. plan for d/c 06/29/202406/25 continue tx. Reason for continued inpatient stay Substantial Risk for: inability to function Time Spent With Patient Time: Total time managing care of this patient today ____ minutes.
[2024-06-25 20:00] VITALS: BP 127/75; PULSE 80; RESP 16; TEMP 36.1; O2SAT 97
[2024-06-25] MEDS: Donepezil HCl 5 MG TABLET PO (20:46)
[2024-06-25] MEDS: OLANZapine 5 MG TABLET PO (20:46)
[2024-06-25] MEDS: predniSONE 5 MG TABLET 10 MG PO (20:46)
[2024-06-26] MEDS: Omeprazole 20 MG CAPSULE.DR PO (05:25)
[2024-06-26] MEDS: Levothyroxine Sodium 125 MCG TABLET PO (05:25)
[2024-06-26 08:00] VITALS: BP 165/86; PULSE 78; RESP 18; TEMP 36; O2SAT 94
[2024-06-26] MEDS: estradioL 0.5 MG TABLET 1 MG PO (08:22)
[2024-06-26] MEDS: predniSONE 5 MG TABLET PO (08:22)
[2024-06-26] MEDS: Hydroxychloroquine Sulfate 200 MG TABLET PO ×2 (08:22→19:53)
[2024-06-26] MEDS: Losartan Potassium 50 MG TABLET 100 MG PO (08:23)
--- NOTE | 2024-06-26 15:59 | P.PNPSI_ITS ---
Subjective Subjective Date of Service: 06/26/24 Reason For Visit: Psychosis Subjective Notes: Conditional Voluntary Healthcare Proxy: Yes Interim History: Pt slept through the night. She is taking medications as prescribed. No behavioral concerns. limited insight into extend of cognitive impairment. Review of Systems Review of Systems No SOB, no chest pain. No constipation She reports back pain Mental Status Exam Mental Status Exam Narrative: Appearance: wearing hospital gown, fair hygiene, in NAD Psychomotor: no PMA/PMR Speech: clear, normal rate/rhythm, spontaneous, low volume voice hx of vocal cord injury TP: linear TC: discharge saturday Mood: good Affect: flexible, full-range SI: denies HI: denies VH/AH: none Delusions: none Insight/judgment: poor x 2. memory/cog: alert, oriented x 3. some confusion about why she is here. MOCA completed on 06/12/2024, impairments in executive function/visuospatial (2/5), naming 2/3, language fluency (0/1), intact orientation. ACL 4.6 Diagnostics Vital Signs (24Hr): Vital Signs - 24 hr 06/25/24 20:00 06/26/24 08:00 Temperature 97 F 96.8 F Pulse Rate 80 78 Respiratory Rate 16 18 Blood Pressure 127/75 165/86 H Pulse Oximetry 97 94 Oxygen Delivery Method Room Air Room Air BMI result Body Mass Index 32.3 Labs 06/22/24 11:38 Imaging Radiology Impressions: ITS Impressions Chest X-Ray 06/26/24 14:38 IMPRESSION: Subsegmental atelectasis versus scarring at the left lung base and in the right midlung zone. Electronically signed by: Tom Bryant MD 06/26/2024 03:02 PM EDT RP Medications Medications Current Medications Acetaminophen (Acetaminophen 325 Mg Tablet) 650 mg PO Q6H PRN PRN Reason: Headache/Pain, Scale 1-10 Last Admin: 06/24/24 20:30 Dose: 650 mg Al Hydroxide/Mg Hydroxide (Magnesium Hydrox/Alum Hydrox 30 Ml Oral.Susp) 30 ml PO Q6H PRN PRN Reason: Heartburn/Nausea Donepezil HCl (Donepezil Hcl 5 Mg Tablet) 5 mg PO BEDTIME [facility] Last Admin: 06/25/24 20:46 Dose: 5 mg Estradiol (Estradiol 0.5 Mg Tablet) 1 mg PO DAILY [facility] Last Admin: 06/26/24 08:22 Dose: 1 mg Hydroxychloroquine Sulfate (Hydroxychloroquine Sulfate 200 Mg Tablet) 200 mg PO BID [facility] Last Admin: 06/26/24 08:22 Dose: 200 mg Levothyroxine Sodium (Levothyroxine Sodium 125 Mcg Tablet) 125 mcg PO DAILY@0630 [facility] Last Admin: 06/26/24 05:25 Dose: 125 mcg Losartan Potassium (Losartan Potassium 50 Mg Tablet) 100 mg PO DAILY [facility]; Protocol Last Admin: 06/26/24 08:23 Dose: 100 mg Magnesium Hydroxide (Milk Of Magnesia 30 Ml Oral.Susp) 30 ml PO DAILY PRN PRN Reason: Constipation Metoprolol Tartrate (Metoprolol Tartrate 25 Mg Tablet) 25 mg PO DAILY [facility]; Protocol Nicotine Polacrilex (Nicotine Polacrilex 2 Mg Gum) 4 mg BUCCAL Q2H PRN PRN Reason: Nicotine Cravings Olanzapine (Olanzapine 5 Mg Tablet) 5 mg PO BEDTIME [facility] Last Admin: 06/25/24 20:46 Dose: 5 mg Omeprazole (Omeprazole 20 Mg Capsule.Dr) 20 mg PO DAILY@0630 [facility] Last Admin: 06/26/24 05:25 Dose: 20 mg Prednisone (Prednisone 5 Mg Tablet) 10 mg PO BEDTIME [facility] Last Admin: 06/25/24 20:46 Dose: 10 mg Prednisone (Prednisone 5 Mg Tablet) 5 mg PO DAILY [facility] Last Admin: 06/26/24 08:22 Dose: 5 mg Quetiapine Fumarate (Quetiapine Fumarate 50 Mg Tablet) 50 mg PO TID PRN PRN Reason: severe anxiety/agitation Trazodone HCl (Trazodone Hcl 25 Mg Halftab) 25 mg PO BEDTIME MRX1 PRN PRN Reason: Insomnia Last Admin: 06/24/24 20:30 Dose: 25 mg Allergies Allergies Allergy/AdvReac Type Severity Reaction Status Date / Time amoxicillin AdvReac Rash Verified 06/10/24 19:16 clindamycin AdvReac Rash Verified 06/10/24 19:14 erythromycin base AdvReac Rash Verified 06/10/24 19:15 nabumetone AdvReac Rash Verified 06/10/24 19:17 Penicillins AdvReac Rash Verified 06/10/24 19:16 Sulfa (Sulfonamide AdvReac Rash Verified 06/10/24 19:18 Antibiotics) [Sulfonamides] Assessment & Plan Assessment & Plan (1) Major neurocognitive disorder: Status: Acute Code(s): F03.90 - Unspecified dementia, unspecified severity, without behavioral disturbance, psychotic disturbance, mood disturbance, and anxiety Plan Mrs. Rosa is a 84 year-old woman with hx of dementia who recently moved to [facility] in 03/2024. Pt was sent via EMS from the [facility] to [facility] due to combative behaviors, refusing care and HI towards daughter. Medical work remarkable for elevated TSH initially 27 to 12. Elevated troponin but seen by cardiology who felt not ischemia, but increased demand. On the unit, pt presents as irritable and upset with daughter, mostly because of placement to [facility] and not being at home. No overt psychosis or delusions noted. No SI/HI. She declines any medications for mood. Other than irritability, no combative behaviors. MOCA and ACL 4.6 show moderate cognitive decline. PLAN 06/13 planning dc at end of sect 12b on 06/16 06/14 continue tx. irritable, no combative behaviors 06/15 spoke with daughter who is HCP. HCP reports pt more irritable in last few weeks, initially when moved to the [facility] she seemed to be adjusting well, but in past two weeks seemed very irritable, blaming daughter, seemed more suspicious towards staff at the [facility]. decided to do further medication adjustments, switch to olanzapine 5mg po qhs and add aricept 5mg po qhs. 06/16 continue tx. 06/17 continue tx. 06/18 continue tx. 06/19 continue tx. plan to dc next week. 06/20: continue current management and treatment plan. 06/21: continue current management and treatment plan. 06/22 continue tx. plan for d/c this week. 06/23 continue tx. 06/24 continue tx. plan for d/c 06/29/202406/25 continue tx. 06/26 continue tx. Reason for continued inpatient stay Substantial Risk for: inability to function Time Spent With Patient Time: Total time managing care of this patient today ____ minutes.
[2024-06-26] MEDS: Acetaminophen 325 MG TABLET 650 MG PO (18:39)
[2024-06-26 19:49] VITALS: BP 186/81; PULSE 82; RESP 18; TEMP 36.2; O2SAT 96
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
[2024-06-26] MEDS: Donepezil HCl 5 MG TABLET PO (19:53)
[2024-06-26] MEDS: OLANZapine 5 MG TABLET PO (19:53)
[2024-06-26] MEDS: predniSONE 5 MG TABLET 10 MG PO (19:53)
[2024-06-27] MEDS: Levothyroxine Sodium 125 MCG TABLET PO (05:19)
[2024-06-27] MEDS: Omeprazole 20 MG CAPSULE.DR PO (05:55)
[2024-06-27 08:00] VITALS: BP 148/72; PULSE 90; RESP 18; TEMP 36.4; O2SAT 97
[2024-06-27 08:13] LABS: Adenovirus PCR Not Detected (Not Detect.); Bordetella parapertussis PCR Not Detected (Not Detect.); Bordetella pertussis PCR Not Detected (Not Detect.); Chlamydia pneumoniae PCR Not Detected (Not Detect.); Coronavirus 229E PCR Not Detected (Not Detect.); Coronavirus HKU1 PCR Not Detected (Not Detect.); Coronavirus NL63 PCR Not Detected (Not Detect.); Coronavirus OC43 PCR Not Detected (Not Detect.); Human metapneumovirus PCR Not Detected (Not Detect.); Influenza A PCR Not Detected (Not Detect.); Influenza B PCR Not Detected (Not Detect.); Mycoplasma pneumoniae PCR Not Detected (Not Detect.); Parainfluenza 1 PCR Not Detected (Not Detect.); Parainfluenza 2 PCR Not Detected (Not Detect.); Parainfluenza 3 PCR Not Detected (Not Detect.); Parainfluenza 4 PCR Not Detected (Not Detect.); RSV PCR Not Detected (Not Detect.); Rhino/Enterovirus PCR Not Detected (Not Detect.)
[2024-06-27] MEDS: Losartan Potassium 50 MG TABLET 100 MG PO (08:14)
[2024-06-27] MEDS: predniSONE 5 MG TABLET PO (08:14)
[2024-06-27] MEDS: estradioL 0.5 MG TABLET 1 MG PO (08:14)
[2024-06-27] MEDS: Hydroxychloroquine Sulfate 200 MG TABLET PO ×2 (08:14→19:30)
[2024-06-27 09:02] LABS: Influenza A H1 PCR Not Detected (Not Detect.); Influenza A H1-2009 PCR Not Detected (Not Detect.); Influenza A H3 PCR Not Detected (Not Detect.); SARS-CoV-2 PCR Not Detected (Not Detect.)
--- NOTE | 2024-06-27 14:59 | P.PNPSI_ITS ---
Subjective Subjective Date of Service: 06/27/24 Reason For Visit: Psychosis Interim History: no issues. pleasant, calm. states she is leaving on saturday. per staff, had CXR yesteday with some ambiguous findings, to see hospitalist today. has incentive spirometer for now. Mental Status Exam Mental Status Exam Narrative: Appearance: wearing hospital gown, fair hygiene, in NAD Psychomotor: no PMA/PMR Speech: clear, normal rate/rhythm, spontaneous, low volume voice hx of vocal cord injury TP: linear TC: discharge saturday Mood: good Affect: flexible, full-range SI: denies HI: denies VH/AH: none Delusions: none Insight/judgment: poor x 2. memory/cog: alert, oriented x 3. some confusion about why she is here. MOCA completed on 06/12/2024, impairments in executive function/visuospatial (2/5), naming 2/3, language fluency (0/1), intact orientation. ACL 4.6 Diagnostics Vital Signs (24Hr): Vital Signs - 24 hr 06/26/24 19:49 06/27/24 08:00 Temperature 97.2 F 97.5 F Pulse Rate 82 90 Respiratory Rate 18 18 Blood Pressure 186/81 H 148/72 H Pulse Oximetry 96 97 Oxygen Delivery Method Room Air Room Air BMI result Body Mass Index 32.3 Labs 06/22/24 11:38 Labs: Laboratory Results - last 48 hr 06/26/24 15:17 Respiratory Panel [place] See Note Adenovirus (Rapid PCR) Not Detected B.pert (TEM-PCR) Not Detected B.parapertussis DNA PCR Not Detected C. pneumoniae DNA (PCR) Not Detected Coronavirus OC43 (PCR) Not Detected Coronavirus HKU1 (PCR) Not Detected Coronavirus 229E (PCR) Not Detected Coronavirus NL63 (PCR) Not Detected Human Metapneumovir PCR Not Detected Influenza A (RT-PCR) Not Detected Influenza A (H1) PCR Not Detected Influ A (H1/09) PCR Not Detected Influenza A (H3) PCR Not Detected Influenza B (RT-PCR) Not Detected M. pneumoniae (PCR) Not Detected Parainfluenza 1 (PCR) Not Detected Parainfluenza 2 (PCR) Not Detected Parainfluenza 3 (PCR) Not Detected Parainfluenza 4 (PCR) Not Detected RSV (PCR) Not Detected Entero/Rhino (PCR) Not Detected SARS-CoV-2 RNA (RT-PCR) Not Detected Imaging Radiology Impressions: ITS Impressions Chest X-Ray 06/26/24 14:38 IMPRESSION: Subsegmental atelectasis versus scarring at the left lung base and in the right midlung zone. Electronically signed by: Tom Bryant MD 06/26/2024 03:02 PM EDT RP Medications Medications Current Medications Acetaminophen (Acetaminophen 325 Mg Tablet) 650 mg PO Q6H PRN PRN Reason: Headache/Pain, Scale 1-10 Last Admin: 06/26/24 18:39 Dose: 650 mg Al Hydroxide/Mg Hydroxide (Magnesium Hydrox/Alum Hydrox 30 Ml Oral.Susp) 30 ml PO Q6H PRN PRN Reason: Heartburn/Nausea Donepezil HCl (Donepezil Hcl 5 Mg Tablet) 5 mg PO BEDTIME [facility] Last Admin: 06/26/24 19:53 Dose: 5 mg Estradiol (Estradiol 0.5 Mg Tablet) 1 mg PO DAILY [facility] Last Admin: 06/27/24 08:14 Dose: 1 mg Guaifenesin/Dextromethorphan (Guaifenesin Dm 200/20/10 Ml 10 Ml Syrup) 10 ml PO Q6H PRN PRN Reason: Cough Hydroxychloroquine Sulfate (Hydroxychloroquine Sulfate 200 Mg Tablet) 200 mg PO BID [facility] Last Admin: 06/27/24 08:14 Dose: 200 mg Levothyroxine Sodium (Levothyroxine Sodium 125 Mcg Tablet) 125 mcg PO DAILY@0630 [facility] Last Admin: 06/27/24 05:19 Dose: 125 mcg Losartan Potassium (Losartan Potassium 50 Mg Tablet) 100 mg PO DAILY [facility]; Protocol Last Admin: 06/27/24 08:14 Dose: 100 mg Magnesium Hydroxide (Milk Of Magnesia 30 Ml Oral.Susp) 30 ml PO DAILY PRN PRN Reason: Constipation Metoprolol Tartrate (Metoprolol Tartrate 25 Mg Tablet) 25 mg PO DAILY [facility]; Protocol Nicotine Polacrilex (Nicotine Polacrilex 2 Mg Gum) 4 mg BUCCAL Q2H PRN PRN Reason: Nicotine Cravings Olanzapine (Olanzapine 5 Mg Tablet) 5 mg PO BEDTIME [facility] Last Admin: 06/26/24 19:53 Dose: 5 mg Omeprazole (Omeprazole 20 Mg Capsule.Dr) 20 mg PO DAILY@0630 [facility] Last Admin: 06/27/24 05:55 Dose: 20 mg Prednisone (Prednisone 5 Mg Tablet) 10 mg PO BEDTIME [facility] Last Admin: 06/26/24 19:53 Dose: 10 mg Prednisone (Prednisone 5 Mg Tablet) 5 mg PO DAILY [facility] Last Admin: 06/27/24 08:14 Dose: 5 mg Quetiapine Fumarate (Quetiapine Fumarate 50 Mg Tablet) 50 mg PO TID PRN PRN Reason: severe anxiety/agitation Trazodone HCl (Trazodone Hcl 25 Mg Halftab) 25 mg PO BEDTIME MRX1 PRN PRN Reason: Insomnia Last Admin: 06/24/24 20:30 Dose: 25 mg Allergies Allergies Allergy/AdvReac Type Severity Reaction Status Date / Time amoxicillin AdvReac Rash Verified 06/10/24 19:16 clindamycin AdvReac Rash Verified 06/10/24 19:14 erythromycin base AdvReac Rash Verified 06/10/24 19:15 nabumetone AdvReac Rash Verified 06/10/24 19:17 Penicillins AdvReac Rash Verified 06/10/24 19:16 Sulfa (Sulfonamide AdvReac Rash Verified 06/10/24 19:18 Antibiotics) [Sulfonamides] Assessment & Plan Assessment & Plan (1) Major neurocognitive disorder: Status: Acute Code(s): F03.90 - Unspecified dementia, unspecified severity, without behavioral disturbance, psychotic disturbance, mood disturbance, and anxiety Plan Mrs. Rosa is a 84 year-old woman with hx of dementia who recently moved to [facility] in 03/2024. Pt was sent via EMS from the [facility] to [facility] due to combative behaviors, refusing care and HI towards daughter. Medical work remarkable for elevated TSH initially 27 to 12. Elevated troponin but seen by cardiology who felt not ischemia, but increased demand. On the unit, pt presents as irritable and upset with daughter, mostly because of placement to [facility] and not being at home. No overt psychosis or delusions noted. No SI/HI. She declines any medications for mood. Other than irritability, no combative behaviors. MOCA and ACL 4.6 show moderate cognitive decline. PLAN 06/13 planning dc at end of sect 12b on 06/16 06/14 continue tx. irritable, no combative behaviors 06/15 spoke with daughter who is HCP. HCP reports pt more irritable in last few weeks, initially when moved to the [facility] she seemed to be adjusting well, but in past two weeks seemed very irritable, blaming daughter, seemed more suspicious towards staff at the [facility]. decided to do further medication adjustments, switch to olanzapine 5mg po qhs and add aricept 5mg po qhs. 06/16 continue tx. 06/17 continue tx. 06/18 continue tx. 06/19 continue tx. plan to dc next week. 06/20: continue current management and treatment plan. 06/21: continue current management and treatment plan. 06/22 continue tx. plan for d/c this week. 06/23 continue tx. 06/24 continue tx. plan for d/c 06/29/202406/25 continue tx. 06/27: calm, pleasant. no issues. planning to discharge saturday. Reason for continued inpatient stay Substantial Risk for: inability to function Time Spent With Patient Time: Total time managing care of this patient today ____ minutes.
[2024-06-27] MEDS: Acetaminophen 325 MG TABLET 650 MG PO (17:06)
[2024-06-27] MEDS: OLANZapine 5 MG TABLET PO (19:30)
[2024-06-27] MEDS: predniSONE 5 MG TABLET 10 MG PO (19:30)
[2024-06-27] MEDS: Donepezil HCl 5 MG TABLET PO (19:31)
[2024-06-27] MEDS: guaiFENesin DM 200/20/10 ML 10 ML SYRUP PO (19:57)
[2024-06-27 20:00] VITALS: BP 113/66; PULSE 84; RESP 25; TEMP 36.2; O2SAT 97
[2024-06-28] MEDS: Levothyroxine Sodium 125 MCG TABLET PO (05:08)
[2024-06-28 05:12] VITALS: RESP 24
[2024-06-28] MEDS: Omeprazole 20 MG CAPSULE.DR PO (05:47)
[2024-06-28 08:00] VITALS: BP 168/95; PULSE 74; RESP 18; TEMP 36.6; O2SAT 97
[2024-06-28] MEDS: Losartan Potassium 50 MG TABLET 100 MG PO (08:09)
[2024-06-28] MEDS: Hydroxychloroquine Sulfate 200 MG TABLET PO ×2 (08:09→20:19)
[2024-06-28] MEDS: predniSONE 5 MG TABLET PO (08:09)
[2024-06-28] MEDS: estradioL 0.5 MG TABLET 1 MG PO (08:09)
[2024-06-28] MEDS: guaiFENesin DM 200/20/10 ML 10 ML SYRUP PO ×2 (08:09→17:26)
--- NOTE | 2024-06-28 14:40 | HO.PSYCHPN ---
Subjective Subjective Date of Service: 06/28/24 Reason For Visit: Psychosis Interim History: calm, pleasant, cooperative. per staff, no change. Mental Status Exam Mental Status Exam Narrative: Appearance: wearing hospital gown, fair hygiene, in NAD Psychomotor: no PMA/PMR Speech: clear, normal rate/rhythm, spontaneous, low volume voice hx of vocal cord injury TP: linear TC: discharge saturday Mood: good Affect: flexible, full-range SI: denies HI: denies VH/AH: none Delusions: none Insight/judgment: poor x 2. memory/cog: alert, oriented x 3. some confusion about why she is here. MOCA completed on 06/12/2024, impairments in executive function/visuospatial (2/5), naming 2/3, language fluency (0/1), intact orientation. ACL 4.6 Diagnostics Vital Signs (24Hr): Vital Signs - 24 hr 06/27/24 20:00 06/28/24 05:12 06/28/24 08:00 Temperature 97.2 F 97.9 F Pulse Rate 84 74 Respiratory Rate 25 H 24 H 18 Blood Pressure 113/66 168/95 H Pulse Oximetry 97 97 Oxygen Delivery Method Room Air Room Air BMI result Body Mass Index 32.3 Labs 06/22/24 11:38 Labs: Laboratory Results - last 48 hr 06/26/24 15:17 Respiratory Panel [place] See Note Adenovirus (Rapid PCR) Not Detected B.pert (TEM-PCR) Not Detected B.parapertussis DNA PCR Not Detected C. pneumoniae DNA (PCR) Not Detected Coronavirus OC43 (PCR) Not Detected Coronavirus HKU1 (PCR) Not Detected Coronavirus 229E (PCR) Not Detected Coronavirus NL63 (PCR) Not Detected Human Metapneumovir PCR Not Detected Influenza A (RT-PCR) Not Detected Influenza A (H1) PCR Not Detected Influ A (H1/09) PCR Not Detected Influenza A (H3) PCR Not Detected Influenza B (RT-PCR) Not Detected M. pneumoniae (PCR) Not Detected Parainfluenza 1 (PCR) Not Detected Parainfluenza 2 (PCR) Not Detected Parainfluenza 3 (PCR) Not Detected Parainfluenza 4 (PCR) Not Detected RSV (PCR) Not Detected Entero/Rhino (PCR) Not Detected SARS-CoV-2 RNA (RT-PCR) Not Detected Imaging Radiology Impressions: ITS Impressions Chest X-Ray 06/26/24 14:38 IMPRESSION: Subsegmental atelectasis versus scarring at the left lung base and in the right midlung zone. Electronically signed by: Tom Bryant MD 06/26/2024 03:02 PM EDT RP Medications Medications Current Medications Acetaminophen (Acetaminophen 325 Mg Tablet) 650 mg PO Q6H PRN PRN Reason: Headache/Pain, Scale 1-10 Last Admin: 06/27/24 17:06 Dose: 650 mg Al Hydroxide/Mg Hydroxide (Magnesium Hydrox/Alum Hydrox 30 Ml Oral.Susp) 30 ml PO Q6H PRN PRN Reason: Heartburn/Nausea Donepezil HCl (Donepezil Hcl 5 Mg Tablet) 5 mg PO BEDTIME [facility] Last Admin: 06/27/24 19:31 Dose: 5 mg Estradiol (Estradiol 0.5 Mg Tablet) 1 mg PO DAILY [facility] Last Admin: 06/28/24 08:09 Dose: 1 mg Guaifenesin/Dextromethorphan (Guaifenesin Dm 200/20/10 Ml 10 Ml Syrup) 10 ml PO Q6H PRN PRN Reason: Cough Last Admin: 06/28/24 08:09 Dose: 10 ml Hydroxychloroquine Sulfate (Hydroxychloroquine Sulfate 200 Mg Tablet) 200 mg PO BID [facility] Last Admin: 06/28/24 08:09 Dose: 200 mg Levothyroxine Sodium (Levothyroxine Sodium 125 Mcg Tablet) 125 mcg PO DAILY@30 [facility] Last Admin: 06/28/24 05:08 Dose: 125 mcg Losartan Potassium (Losartan Potassium 50 Mg Tablet) 100 mg PO DAILY [facility]; Protocol Last Admin: 06/28/24 08:09 Dose: 100 mg Magnesium Hydroxide (Milk Of Magnesia 30 Ml Oral.Susp) 30 ml PO DAILY PRN PRN Reason: Constipation Metoprolol Tartrate (Metoprolol Tartrate 25 Mg Tablet) 25 mg PO DAILY [facility]; Protocol Nicotine Polacrilex (Nicotine Polacrilex 2 Mg Gum) 4 mg BUCCAL Q2H PRN PRN Reason: Nicotine Cravings Olanzapine (Olanzapine 5 Mg Tablet) 5 mg PO BEDTIME [facility] Last Admin: 06/27/24 19:30 Dose: 5 mg Omeprazole (Omeprazole 20 Mg Capsule.Dr) 20 mg PO DAILY@30 [facility] Last Admin: 06/28/24 05:47 Dose: 20 mg Prednisone (Prednisone 5 Mg Tablet) 10 mg PO BEDTIME [facility] Last Admin: 06/27/24 19:30 Dose: 10 mg Prednisone (Prednisone 5 Mg Tablet) 5 mg PO DAILY [facility] Last Admin: 06/28/24 08:09 Dose: 5 mg Quetiapine Fumarate (Quetiapine Fumarate 50 Mg Tablet) 50 mg PO TID PRN PRN Reason: severe anxiety/agitation Trazodone HCl (Trazodone Hcl 25 Mg Halftab) 25 mg PO BEDTIME MRX1 PRN PRN Reason: Insomnia Last Admin: 06/24/24 20:30 Dose: 25 mg Allergies Allergies Allergy/AdvReac Type Severity Reaction Status Date / Time amoxicillin AdvReac Rash Verified 06/10/24 19:16 clindamycin AdvReac Rash Verified 06/10/24 19:14 erythromycin base AdvReac Rash Verified 06/10/24 19:15 nabumetone AdvReac Rash Verified 06/10/24 19:17 Penicillins AdvReac Rash Verified 06/10/24 19:16 Sulfa (Sulfonamide AdvReac Rash Verified 06/10/24 19:18 Antibiotics) [Sulfonamides] Assessment & Plan Assessment & Plan (1) Major neurocognitive disorder: Status: Acute Code(s): F03.90 - Unspecified dementia, unspecified severity, without behavioral disturbance, psychotic disturbance, mood disturbance, and anxiety Plan Mrs. Rosa is a 84 year-old woman with hx of dementia who recently moved to [facility] in 03/2024. Pt was sent via EMS from the [facility] to [facility] due to combative behaviors, refusing care and HI towards daughter. Medical work remarkable for elevated TSH initially 27 to 12. Elevated troponin but seen by cardiology who felt not ischemia, but increased demand. On the unit, pt presents as irritable and upset with daughter, mostly because of placement to [facility] and not being at home. No overt psychosis or delusions noted. No SI/HI. She declines any medications for mood. Other than irritability, no combative behaviors. MOCA and ACL 4.6 show moderate cognitive decline. PLAN 06/13 planning dc at end of sect 12b on 06/16 06/14 continue tx. irritable, no combative behaviors 06/15 spoke with daughter who is HCP. HCP reports pt more irritable in last few weeks, initially when moved to the [facility] she seemed to be adjusting well, but in past two weeks seemed very irritable, blaming daughter, seemed more suspicious towards staff at the [facility] decided to do further medication adjustments, switch to olanzapine 5mg po qhs and add aricept 5mg po qhs. 06/16 continue tx. 06/17 continue tx. 06/18 continue tx. 06/19 continue tx. plan to dc next week. 06/20: continue current management and treatment plan. 06/21: continue current management and treatment plan. 06/22 continue tx. plan for d/c this week. 06/23 continue tx. 06/24 continue tx. plan for d/c 06/29/202406/25 continue tx. 06/27: calm, pleasant. no issues. planning to discharge saturday. 06/28: stable. appears physically well. continue current mgmt. Reason for continued inpatient stay Substantial Risk for: inability to function Time Spent With Patient Time: Total time managing care of this patient today ____ minutes.
[2024-06-28] MEDS: OLANZapine 5 MG TABLET PO (20:16)
[2024-06-28] MEDS: predniSONE 5 MG TABLET 10 MG PO (20:17)
[2024-06-28] MEDS: Donepezil HCl 5 MG TABLET PO (20:19)
[2024-06-28 20:20] VITALS: BP 142/72; PULSE 88; TEMP 36.6; O2SAT 96
[2024-06-29] MEDS: Omeprazole 20 MG CAPSULE.DR PO (06:13)
[2024-06-29] MEDS: Levothyroxine Sodium 125 MCG TABLET PO (06:14)
[2024-06-29 07:50] VITALS: BP 190/90; PULSE 80; RESP 18; O2SAT 95
[2024-06-29 07:59] VITALS: BP 190/90
[2024-06-29] MEDS: estradioL 0.5 MG TABLET 1 MG PO (07:59)
[2024-06-29] MEDS: predniSONE 5 MG TABLET PO (07:59)
[2024-06-29] MEDS: Losartan Potassium 50 MG TABLET 100 MG PO (07:59)
[2024-06-29] MEDS: Hydroxychloroquine Sulfate 200 MG TABLET PO (07:59)
--- NOTE | 2024-06-29 08:39 | P.DS_ITS ---
DS: Providers Provider Date of Service: 06/29/24 Date of admission: 06/10/24 17:52 Date of discharge: 06/29/24 Primary care physician: Unknown Physician Consults: 06/10/24 19:37 Consult to Hospitalist Routine Comment: Consulting Provider[place] [facility] Reason For Exam: admission physical 06/26/24 14:13 Consult to Hospitalist Routine Comment: Consulting Provider: [facility] Reason For Exam: wheezing/dyspnea DS: Diagnosis Discharge Diagnosis (1) Major neurocognitive disorder: Status: Acute DS: Medications Discharge Medications Home Medications: Previous Rx's ?Medication ?Instructions ?Recorded donepezil 5 mg tablet 5 mg PO BEDTIME #30 tabs 06/26/24 estradiol 1 mg tablet 1 mg PO DAILY #30 tabs 06/26/24 hydroxychloroquine 200 mg tablet 200 mg PO BID #60 tabs 06/26/24 levothyroxine 125 mcg tablet 125 mcg PO DAILY@0630 #30 tabs 06/26/24 losartan 100 mg tablet 100 mg PO DAILY #30 tabs 06/26/24 metoprolol tartrate 25 mg tablet 25 mg PO DAILY #30 tabs 06/26/24 olanzapine 5 mg tablet 5 mg PO BEDTIME #30 tabs 06/26/24 omeprazole 20 mg capsule,delayed 20 mg PO DAILY@0630 #30 caps 06/26/24 release prednisone 5 mg tablet 5 mg PO DAILY #30 tabs 06/26/24 prednisone 5 mg tablet 10 mg (2 x 5 mg) PO BEDTIME #30 06/26/24 tabs Mental Status Exam Mental Status Exam Narrative: Appearance: wearing hospital gown, fair hygiene, in NAD Psychomotor: no PMA/PMR Speech: clear, normal rate/rhythm, spontaneous, low volume voice hx of vocal cord injury TP: linear TC: discharge saturday Mood: good Affect: flexible, full-range SI: denies HI: denies VH/AH: none Delusions: none Insight/judgment: poor x 2. memory/cog: alert, oriented x 3. some confusion about why she is here. MOCA completed on 06/12/2024, impairments in executive function/visuospatial (2/5), naming 2/3, language fluency (0/1), intact orientation. ACL 4.6 Data Data Completed and Pending Completed studies during hospitalization [Text1]: 06/22/24 06/26/24 11:38 15:17 Sodium 139 Potassium 4.6 Chloride 108 Carbon Dioxide 25 Anion Gap 11 L BUN 33 H Creatinine 0.78 Estim Creat Clear Calc 59.2 Estimated GFR > 60 Random Glucose 118 H Calcium 8.3 L D Total Bilirubin 0.4 AST 28 ALT 24 Alkaline Phosphatase 59 Total Protein 6.3 L Albumin 3.6 Respiratory Panel [place] See Note Adenovirus (Rapid PCR) Not Detected B.pert (TEM-PCR) Not Detected B.parapertussis DNA PCR Not Detected C. pneumoniae DNA (PCR) Not Detected Coronavirus OC43 (PCR) Not Detected Coronavirus HKU1 (PCR) Not Detected Coronavirus 229E (PCR) Not Detected Coronavirus NL63 (PCR) Not Detected Human Metapneumovir PCR Not Detected Influenza A (RT-PCR) Not Detected Influenza A (H1) PCR Not Detected Influ A (H1/09) PCR Not Detected Influenza A (H3) PCR Not Detected Influenza B (RT-PCR) Not Detected M. pneumoniae (PCR) Not Detected Parainfluenza 1 (PCR) Not Detected Parainfluenza 2 (PCR) Not Detected Parainfluenza 3 (PCR) Not Detected Parainfluenza 4 (PCR) Not Detected RSV (PCR) Not Detected Entero/Rhino (PCR) Not Detected SARS-CoV-2 RNA (RT-PCR) Not Detected Imaging Diagnostic Imaging Impressions Chest X-Ray 06/26/24 14:38 IMPRESSION: Subsegmental atelectasis versus scarring at the left lung base and in the right midlung zone. Electronically signed by: Tom Bryant MD 06/26/2024 03:02 PM EDT DS: Summary Hospital Course Hospital Course: Mrs. Rosa is an 84 year-old woman with hx of dementia who recently transition to [facility] in 03/2024 due to concerns about her ability to care for herself due to dementia. She was sent via EMS from [facility] to [facility] due to combative behaviors, dizziness, refusal of care and HI towards daughter. In the ED, pertinent labs include CMP with no electrolyte abnormalities, BUN 17, Cr 1.03, creatinine clearance 54. LFTs wnl. UA not suggestive of UTI. She did have elevated TSH initially 27.994 on 06/01/2024, but went down to 12 on (06/06/2024). Troponins were also elevated initially 165 on 06/02/2024, then down to 29 on 06/06. She was seen by cardiology ruling out ischemia but considered elevation was due to increase demand. Head CT showed atrophy and microvascular changes but no acute finding. On the unit, pt presents as irritable. She reports her daughter has been making decisions on her behalf that she does not agree with including moving her out of her home in [facility] to a memory unit. She does not agree with diagnosis or dementia nor with idea that she was not able to care for herself. She denies SI or HI. She reports HI statements where in the context of frustration as again she feels her daughter is crossing her the line by taking over her medical care and financial decisions. She reports she has the right to refuse care and does admit that she was not taking medications as prescribed at times. She was noted to be easily irritable when talking about her daughter and not being able to return to her own home and live she had in [place]. Past Psychiatric History: Inpt: none prior OP: none Past medication trials: olanzapine, seroquel Hx of suicide attempts: none Medical Evaluation Reviewed: Yes HOSPITAL COURSE On the unit, pt was admitted on a CV signed by HCP. Pt presented as irritable, complaining about daughter taking over her life. She seemed somewhat suspicious. No aggression towards self or others but easily irritable. No SI/HI. No overt psychosis. Some suspiciousness. It was clear that pt was not able to retain information from day to day. She often would get confused as to where she came from, at times thinking she came from [facility] and not from [place]. We discussed risks, benefits and alternative treatment options with HCP. We continue olanzapine at bedtime. She was also started on aricept at bedtime. There were no incidences of disruptive behaviors nor need for restraints. Sleeping and eating well. She was increasingly more visible on the unit. Status at Discharge Cognitive/behavioral status at discharge: Pt with brighter, non labile mood. No SI/HI. No VH/AH. No aggression towards self or others. Sleeping and eating well. Functional status at discharge: independent ambulation Overall status at discharge: patient is back to baseline Time Spent with Patient Time attestation: Total time managing care of this patient today __35__ minutes. Time spent: Greater than 30 minutes Discharge Plan Discharge Anticipated Discharge Date/Time: 06/29/24 08:35 Patient Disposition: Home, Self-Care Discharge Diagnosis: Major Neurocognitive Disorder Referrals: [facility] [Other] - 06/29/24 10:30 am (Transfer back to [facility] on Saturday06/29/24 at 10:30am. Follow up with [facility] WORK[facility] as needed. ) [facility] [Other] - 07/17/24 1:00 pm (Your first follow up appointment for psychiatry with EDIE Javier is scheduled for Saturday07/17/24 at 1PM in office. Please arrive 15 minutes early for registration process. ) Discharge Medications: New donepezil 5 mg Tablet 5 mg PO BEDTIME Qty: 30 0RF hydroxychloroquine 200 mg Tablet 200 mg PO BID Qty: 60 0RF losartan 100 mg tablet 100 mg PO DAILY Qty: 30 0RF olanzapine 5 mg Tablet 5 mg PO BEDTIME Qty: 30 0RF omeprazole 20 mg Capsule,Delayed Release(Dr/Ec) 20 mg PO DAILY@0630 Qty: 30 0RF metoprolol tartrate 25 mg Tablet 25 mg PO DAILY Qty: 30 0RF Protocol: Hold for SBP/HR < HOLD for SBP < : 90 HOLD for HR < : 60 estradiol 1 mg tablet 1 mg PO DAILY Qty: 30 0RF prednisone 5 mg Tablet 10 mg PO BEDTIME Qty: 30 0RF prednisone 5 mg Tablet 5 mg PO DAILY Qty: 30 0RF levothyroxine 125 mcg Tablet 125 mcg PO DAILY@0630 Qty: 30 0RF Discontinued quetiapine 25 mg tablet 25 mg PO BEDTIME prednisone 10 mg tablet 10 mg PO BEDTIME omeprazole 10 mg capsule,delayed release(DR/EC) 10 mg PO DAILY estradiol 1 mg tablet 1 mg PO DAILY levothyroxine 125 mcg tablet 125 mcg PO DAILY hydroxychloroquine 200 mg tablet 200 mg PO BID losartan 100 mg tablet 100 mg PO DAILY metoprolol tartrate 25 mg tablet 25 mg PO DAILY prednisone 5 mg tablet 5 mg PO QAM Discharge Orders: Discharge Order (Routine); Ordered 06/29/24 Ordered By: Dulce Lewis Diet: Low fat, low cholesterol Activity on Discharge: As tolerated Stand Alone Forms: Patient Portal Discharge page Print Language: Haitian Care Plan Goals: 1. maintain mood 2. No SI/HI 3. No aggression towards self or others. Health Concerns: Follow up with PCP Plan of Treatment: 1. take medications as prescribed. 2. go to nearest ED or call 911 in event of emergency Assessment: Pt with brighter, non labile affect. No SI/HI. No VH/AH. Sleeping and eating well. No aggression towards self or others.
[2024-06-29 08:49] VITALS: BP 190/90; PULSE 80
[2024-06-29] MEDS: Metoprolol Tartrate 25 MG TABLET PO (08:49)
--- NOTE | 2024-06-29 11:08 | PC.NURSE ---
Pt was aware of discharge, reported readiness for discharge. D/C instructions given to the patient. Took all her belongings. Left the unit at 11:00 to [facility] via [place] ambulance.
== END 2024-06-29 11:00 | disposition home or self-care (01) | DRG 884 ==
PROVIDERS: Psychiatry & Neurology Psychiatry; Social Worker; Admitting Provider Psychiatry & Neurology Psychiatry; Visit Provider Psychiatry & Neurology Psychiatry
DX: F03.911 Unspecified dementia, unspecified severity, with agitation (principal); E03.9 Hypothyroidism, unspecified; M32.9 Systemic lupus erythematosus, unspecified; I10 Essential (primary) hypertension; K21.9 Gastro-esophageal reflux disease without esophagitis; Z20.822 Contact with and (suspected) exposure to COVID-19; Z87.891 Personal history of nicotine dependence; Z79.890 Hormone replacement therapy; Z79.899 Other long term (current) drug therapy
CPT/HCPCS: 36415; 71045; 80053; 80061; 83036; 84443; 87633

== ENCOUNTER 2024-06-10 17:52 | Outpatient (BNV) | payer MEDICARE, SELFPAY | END 2024-06-26 14:38 | PROVIDERS: Admitting Provider Psychiatry & Neurology Psychiatry; Visit Provider Radiology Diagnostic Radiology | DX: R06.02 Shortness of breath (principal) | CPT/HCPCS: 71045 ==

== ENCOUNTER → 2024-06-10 17:52 | Outpatient (BNV) | payer MEDICARE, SELFPAY | PROVIDERS: Admitting Provider Psychiatry & Neurology Psychiatry; Visit Provider Social Worker | DX: F03.90 Unspecified dementia, unspecified severity, without behavioral disturbance, psychotic disturbance, mood disturbance, and anxiety (principal) | CPT/HCPCS: 90792; 99231; 99232 ==

== ENCOUNTER → 2024-06-10 17:52 | Outpatient (BNV) | payer MEDICARE, SELFPAY | PROVIDERS: Admitting Provider Psychiatry & Neurology Psychiatry; Visit Provider Student in an Organized Health Care Education/Training Program | DX: Z00.8 Encounter for other general examination (principal) | CPT/HCPCS: 99222 ==